=== PATIENT | male | born 1945 | race African-American/Black ===

== ENCOUNTER 2019-01-21 11:32 | Inpatient (IN) | payer OTHER ==
--- NOTE | 2019-01-21 13:45 | R.PREADM ---
SCREENING DATE AND TIME 01/21/2019 11:36 (CDT) ANTICIPATED REHAB ADMISSION DATE 01/23/2019 REFERRING FACILITY [facility] REFERRAL DATE AND TIME 01/21/2019 11:37 (CDT) ACUTE ADMIT DATE 01/17/2019 Previous Rehabilitation(s): No. 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 Maxwell Chisholm M.D. MR# [id number] [facility] [id number] NAME CARROLL ARDON [address]ESS [address] [place]IP [address] DATE OF 1945 AGE 73 SSN# [id number] GENDER male MARITAL STATUS RACE black ADMIT FROM 02 - [facility] PRE-HOSPITAL LIVING SETTING 01 - Home (private home/apt. board/care, assisted living, chcf, transitional living) HOME TYPE AND DETAILS Type of home: single family house # of levels in the residence: 1 # of steps within the residence: 0 # of steps to enter the residence: 0 PRE-HOSPITAL LIVING WITH Family/Relatives FAMILY SUPPORT Yes PRIMARY FAMILY CONTACT NAME SURESH HAMILTON PRIMARY FAMILY CONTACT PHONE PRIMARY FAMILY CONTACT RELATIONSHIP PHONE PRIMARY FAMILY CONTACT ON ADM.? no IS PRIMARY FAMILY CONTACT AUTH. REP.? no 1ST EMERGENCY CONTACT SURESH HAMILTON 1ST CONTACT PHONE 1ST CONTACT RELATIONSHIP PHONE 1ST CONTACT ON ADM. no IS 1ST CONTACT AUTH. REP.? no PHONE 2ND CONTACT ON ADM.? no PATIENT EMPLOYMENT STATUS Retired (for age) PATIENT EMPLOYER No Employer PAYOR INFORMATION: 1ST PAYOR NAME MEDICARE 1ST PAYOR PHONE [phone] 1ST PAYOR INJURY/ILLNESS DUE TO ACCIDENT? No ANOTHER CONSTITUTION PARTY RESPONSIBLE? No PRIMARY REHAB/ACUTE DIAGNOSIS: COPD Exacerbation ONSET DATE 01/17/2019 REHAB IMPAIRMENT CATEGORY (MAXINE): 15 Pulmonary does NOT meet 60% rule PRIMARY DIAGNOSIS-RELATED SURGERIES: No surgeries related to the primary diagnosis were performed. COMORBID REHAB/ACUTE DIAGNOSES: - Non-Tiered Mixed hyperlipidemia (E78.2) PVD - N/A CHF CAD Hypertension Seizure BPH Hypothyroid INTERVENTIONS: - CAD 02 sats Activity management Medications VS - Hypertension Fluid management Medications VS - Hypothyroid Medications - PVD Martinez exercises Medications RISK FOR COMPLICATIONS: - CAD CHF Cardiac Arrest TX Pain - Hypertension CVA Hypotension TX TIA - Hypothyroid Depression Weight gain - PVD Amputation Gangrene Infection Ischemic ulcers Sepsis Wounds SUMMARY OF ACUTE HOSPITALIZATION: Pt. is a 73 yo Right-handed black male. On 01/17/2019 he was admitted to [facility] with diagnosis COPD Exacerbation. His impairment category is Pulmonary Disorders 10 - Chronic Obstructive Pulmonary Disease (10.1). Pre-morbidly, Pt. was independent/mod-I in Self-Care, Sphincter Control, Transfers Control, Locomotio n, Communication, and Social Cognition; and he had good Sphincter Control. Currently, he has deficits of Self-Care, Transfers Control, Locomotion, Endurance, Balance, and Safet y Awareness. Pt. is now referred to [facility] for acute in-patient rehabilitation in order to maximize patient's functional independence in activities of daily living, strength, ROM, and mobi lity. Patient has realistic goal of being discharged at assistance level 6-Marybeth to reside at Home with Fam rashawn/Relatives. Carroll Ardon Jr is a 73 year old male that lives in a single emma house with his . Patient was independent with ADLs and self care. On 12/30/2018, patient was brought to emergency room due to shortness of breath and was admitted to [facility] and treated. He is now medically stable but in need of 24-hour nursing, doctor supervision and oversite while receiving The patient is reasonably expected to participate in 3hours of therapy a day/15 hours per week and receive care with an intensive interdisciplinary approach. PAST MEDICAL HISTORY BPH CAD CHF Hypertension Seizure Hypothyroid PVD Mixed hyperlipidemia (E78.2) PAST SURGICAL HISTORY: NECK SURGERY Hernia repair Permanent Pacemaker Implant MEDICATION ALLERGIES: No Known Drug Allergies (NKDA) ENVIRONMENTAL ALLERGIES: None Known - Substance Allergies None Known - Other Allergies None Known CODE STATUS: Full code WEIGHT/HEIGHT/BMI: WEIGHT 125 lbs HEIGHT 5' 9" BMI 18.5 DIET: - Diet Type Regular - Diet - Solid Texture Regular - Diet - Liquid Texture Regular - Tube Feed N/A REVIEW OF SYSTEMS: - Gen Alert and awake Lying in bed No apparent distress Oriented to: person, time, and place - Vital Signs Temperature: 98.2 F SBP/DBP: 167/94 Pulse: 56 Resp: 17 Vital signs stable, afebrile - CVS RRR VITAL SIGNS Temperature: 98.2 F SBP/DBP: 167/94 Pulse: 56 Resp: 17 Vital signs stable, afebrile MEDICATIONS/TREATMENT: Other- See attached MAR (Medication Administration Record) Carroll Ardon.pdf. CURRENT SPHINCTER CONTROL: Pre-hospital bladder status: continent # of bladder accidents in the last 7 days prior to screenin Pre-hospital bowel status: continent # of bowel accidents in the last 7 days prior to screenin Last Bowel Movement Date: DETAILED CURRENT FUNCTIONAL STATUS: - Bladder accident frequency: Ind - No accidents in the past 7 days - Bowel accident frequency: Ind - No accidents in the past 7 days - Walking score based on distance walked: 0(N/A) - Wheelchair score based on distance traveled: 0(N/A) FUNCTIONAL STATUS: - Self-Care A. Eating Ind sup B. Grooming Ind sup C. Bathing Ind modA D. Dressing - Upper Ind modA E. Dressing - Lower Ind modA F. Toileting Ind modA - Sphincter Control G: Bladder control Ind Ind H: Bowel control Ind Ind - Transfers Control I. Bed/Chair/Wheelchair Ind maxA J. Toilet Ind maxA K. Tub/Shower Ind ADNO - Locomotion L. Walk/Wheelchair (C) Ind Dep L. Walk/Wheelchair (W) Ind Dep M. Stairs Ind ADNO - Communication N. Comprehension (B) Ind Ind O. Expression (B) Ind Ind - Social Cognition P. Social Interaction Ind Ind Q. Problem Solving Ind Ind R. Memory Ind Ind - Endurance Poor - Balance Poor - Safety Awareness Fair CURRENT FUNC. DEFICITS: Self-Care, Transfers Control, Locomotion, Endurance, Balance, and Safety Awareness THERAPY NOTES FROM ACUTE CARE: Attached. SPECIAL NEEDS: - Safety Concerns Skin breakdown precautions needed due to skin breakdown risk PATIENT NEEDS ACTIVE AND ONGOING THERAPEUTIC INTERVENTION OF MULTIPLE THERAPY DISCIPLINES, INCLUDING: - Dietary and Nutrition Adequate Nutrition. Nutritional Education. Nutritional Supplements. PATIENT NEEDS CLOSE MEDICAL SUPERVISION BY A REHABILITATION PHYSICIAN FOR: Bowel and Bladder Management Coordination of Treatment Team Medical and Co-Morbidity Management PATIENT REQUIRES 24X7 REHAB NURSING FOR MEDICAL AND FUNCTIONAL MGT. OF THE FOLLOWING DEFICITS: ADL's Ambulation Bowel and Bladder Management Communication Disease Management Medication Management Patient/Family Education Providing Safe Environment Transfers Pain Management DVT Management PATIENT REQUIRES INTENSIVE, COORDINATED INTERDISCIPLINARY APPROACH TO REHAB: Arranging Home Equipment/Services Discharge Planning Family Intervention/Training Hand Fabric Cutter/Case Management PATIENT REHAB POTENTIAL: Siri ARDON is able and expected to receive 3 hours of individualized therapy daily on at least 5 of steve ry 7 days Siri MENJIVARs prognosis for significant practical improvement within a reasonable period of time appears Good Expected level of measurable improvement will be of a practical value to Siri MENJIVARs functional capaci ty or adaptations to impairments Has a viable Discharge Plan Medically appropriate; condition is sufficiently stable to participate in intensive rehab program DISCHARGE PLAN: - Estimated Length of Stay (days) 11. - Consensus on plan Discharge plan has been discussed with primary caregiver. Patient/Family is in agreement with the meme n. Primary caregiver is in agreement with the plan. - Patient/Family Goals Return home with assistance. - Planned Living Setting Upon Discharge Home, to live with Family/Relatives. Transitional Living. RECOMMENDED CARE LEVEL: IRF RECOMMENDATION DETAILS: Recommended Admission to Comprehensive Rehabilitation Program to Increase Functional [place] SCREENER'S COMPLETENESS CONFIRMATION: - Screening Confirmation The patient data collection on this preadmission screening form is finished PHYSICIANS REVIEW AND ADMISSION DETERMINATION Admit - Based on my review of the Pre-Admission Screening results, in my medical judgment and experie nce, I concur with the findings and recommend admission to [facility], as this patient requires an IRF level of care. SIGNATURE PANEL: Clinical Liaison - [electronically] signed by Julio Cesar Abdul on 01/21/2019 at 12:50 (CDT) Physician Reviewer - [electronically] signed by Dr. Maxwell Chisholm M.D. on 01/21/2019 at 13:44 (CDT )
[2019-01-21] MEDS ORDERED: DOCUSATE NA/SENNA CONC 1 TAB PO PRN (18:21)
[2019-01-21] MEDS: CEFDINIR 300 MG CAP PO SCH (20:00)
[2019-01-21] MEDS: APIXABAN 2.5 MG TABLET PO SCH (20:01)
[2019-01-21] MEDS: DULERA 100/5 (MOMETASONE/FORMOTEROL) INHALER IH SCH (20:02)
[2019-01-21] MEDS: ATORVASTATIN 40 MG TAB PO SCH (20:03)
[2019-01-21] MEDS: HYDROCODONE/APAP 10/325 TAB PO PRN (21:32)
[2019-01-22 06:35] LABS: Absolute Lymphocytes (CBC) 1.5 K/uL (0.7-4.9); Hematocrit 36.2 % (39.6-49.0); Lymphocytes % 22.9 % (15.3-44.8); MPV 8.7 fL (7.6-11.3); RBC Red Blood Cell Count 3.98 M/uL (4.33-5.43)
[2019-01-22 06:53] LABS: Albumin 2.7 g/dL (3.4-5.0); BUN Blood Urea Nitrogen 31 mg/dL (7-18); Bicarbonate 30 mmol/L (21-32); Glucose Level 74 mg/dL (74-106); Magnesium 2.2 mg/dL (1.8-2.4); Potassium 3.8 mmol/L (3.5-5.1); Prealbumin 19.4 mg/dL (20-40); Sodium Level 140 mmol/L (136-145)
[2019-01-22] MEDS: ASPIRIN 81 MG CHEWABLE TABLET PO SCH (08:20)
[2019-01-22] MEDS: predniSONE 20 MG TAB PO SCH (08:20)
[2019-01-22] MEDS: POTASSIUM CL SA 10 MEQ TAB PO SCH (08:20)
[2019-01-22] MEDS: CEFDINIR 300 MG CAP PO SCH ×2 (08:20→19:00)
[2019-01-22] MEDS: APIXABAN 2.5 MG TABLET PO SCH ×2 (08:20→18:59)
[2019-01-22] MEDS: DULERA 100/5 (MOMETASONE/FORMOTEROL) INHALER IH SCH ×2 (08:35→19:00)
--- NOTE | 2019-01-22 14:31 | FAST ---
SHIFT START DATE/TIME: 01/22/2019 07:00 (CDT) SHIFT END DATE/TIME: 01/22/2019 19:00 (CDT) NAME YSABEL ARDON DATE OF : 1945 DATE OF ADMISSION: 01/21/2019 17:23 (CDT) PHONE: AGE: 73 N# [id number] GENDER: Male ENCOUNTER PHYSICIAN: Dr. Maxwell Chisholm M.D. ADMISSION DIAGNOSIS: - Pulmonary Disorders 10 - Chronic Obstructive Pulmonary Disease (10.1) COPD Exacerbation. EATING: EATING - STEP 1: Does the patient require the assistance of a person or device, or need extra time when eating? Yes. EATING - STEP 2: Does the patient require the assistance of a helper? Yes. EATING - STEP 3: Does the patient perform half or more of the eating tasks? Yes. EATING - STEP 4: Does the patient need only supervision, cuing, coaxing OR help to apply an orthosis OR help to cut fo od, open containers, pour liquids, or butter bread? Yes. EATING - SCORE: 5-SUP GROOMING: Comb/brush hair Oral care GROOMING - STEP 1: Does the patient require the assistance of a person or device, or need extra time when grooming? No. GROOMING - SCORE: 7-IND BATHING: Activity did not occur on this shift BATHING - SCORE: 0-UNK DRESSING - UPPER BODY: Activity did not occur on this shift ARTICLES SCORE Total number of steps: 0 DRESSING - UPPER BODY - SCORE: 0-UNK DRESSING - LOWER BODY: Activity did not occur on this shift ARTICLES SCORE Total number of steps: 0 DRESSING - LOWER BODY - SCORE: 0-UNK TOILETING: TOILETING - STEP 1: Does the patient require the assistance of a person or device, or need extra time with toileting? Yes . TOILETING - STEP 2: Does the patient require the assistance of a helper? Yes. TOILETING - STEP 3: How much assistance does the patient require from the helper? Hands-on assistance from the helper TOILETING - STEP 4: Of the 3 tasks: 1) Adjusting clothing prior to use, 2) Cleansing of perineal area, 3) Adjusting clot wisam after use; How many tasks does the patient perform WITHOUT assistance of the helper? Two tasks TOILETING - SCORE: 3-MOD BLADDER MANAGEMENT: BLADDER MANAGEMENT - STEP 1: Does the patient control the bladder completely and intentionally without equipment or devices or med ications, and is always continent? No. BLADDER MANAGEMENT - STEP 2: Does the patient require the assistance of a helper? No, patient requires and independently uses an a ssistive device, such as a urinal, bedpan, bedside commode, catheter, absorbent pad, or collecting de vice BLADDER MANAGEMENT - SCORE: 6-TREVER BLADDER MANAGEMENT - FREQUENCY OF ACCIDENTS: BLADDER MANAGEMENT(FA) - STEP 1: How many accidents has the patient had during the current shift? 2 BOWEL MANAGEMENT: Activity did not occur on this shift BOWEL MANAGEMENT - SCORE: 7-IND TRANSFERS: BED, CHAIR, WHEELCHAIR: TRANSFERS: BED, CHAIR, WHEELCHAIR - STEP 1: Does the patient require assistance of a person or device, or need extra time with bed, chair, or whe elchair transfers? Yes. TRANSFERS: BED, CHAIR, WHEELCHAIR - STEP 2: Does the patient require the assistance of a helper? Yes. TRANSFERS: BED, CHAIR, WHEELCHAIR - STEP 3: How much assistance does the patient require from the helper? Lifting of the patient TRANSFERS: BED, CHAIR, WHEELCHAIR - STEP 4: Does the helper lift the patient ONLY up? ONLY down? Up AND Down? ONLY up. TRANSFERS: BED, CHAIR, WHEELCHAIR - SCORE: 3-MOD TRANSFERS: TOILET: TRANSFERS: TOILET - STEP 1: Does the patient require the assistance of a person or device, or need extra time with toilet transfe rs? Yes. TRANSFERS: TOILET - STEP 2: Does the patient require the assistance of a helper? Yes. TRANSFERS: TOILET - STEP 3: How much assistance does the patient require from the helper? Patient performs half or more of the tr ansferring tasks TRANSFERS: TOILET - STEP 4: Does the patient need only incidental help such as contact guard or steadying during toilet transfer? No. Patient needs more than incidental help TRANSFERS: TOILET - SCORE: 3-MOD TRANSFERS: SHOWER: Activity did not occur on this shift TRANSFERS: SHOWER - SCORE: 0-UNK TRANSFERS: TUB: Activity did not occur on this shift TRANSFERS: TUB - SCORE: 0-UNK LOCOMOTION: WALK: Activity did not occur on this shift LOCOMOTION: WALK - SCORE: 0-UNK LOCOMOTION: WHEELCHAIR: Activity did not occur on this shift LOCOMOTION: WHEELCHAIR - SCORE: 0-UNK COMPREHENSION: COMPREHENSION - SCORE: 0-UNK EXPRESSION EXPRESSION - SCORE: 0-UNK SOCIAL INTERACTION: SOCIAL INTERACTION - SCORE: 0-UNK PROBLEM SOLVING: PROBLEM SOLVING - SCORE: 0-UNK MEMORY: MEMORY - SCORE: 0-UNK SIGNATURE PANEL: The following modified sections: Eating - Score, Grooming - Score, Bathing - Score, Dressing - Upper Body - Score, Dressing - Lower Body - Score, Toileting - Score, Bladder Management - Score, Bowel Man agement - Score, Transfers: Bed, Chair, Wheelchair - Score, Transfers: Toilet - Score, Transfers: Bed , Chair, Wheelchair - Score, Transfers: Toilet - Score, Transfers: Shower - Score, Transfers: Tub - S core, Locomotion: Walk - Score, Locomotion: Wheelchair - Score, Comprehension - Score, Expression - S core, Social Interaction - Score, Problem Solving - Score, Memory - Score were [electronically] nicolette d by Westley Hubbard on SunJan 22 2019 14:30:40 GMT-0500 (Central Daylight Time)
--- NOTE | 2019-01-22 15:54 | FAST ---
ENCOUNTER DATE AND TIME: 01/22/2019 08:00 (CDT) NAME YSABEL ARDON DATE OF : 1945 DATE OF ADMISSION: 01/21/2019 17:23 (CDT) PHONE: AGE: 73 SSN# [id number] GENDER: Male ENCOUNTER PHYSICIAN: Dr. Maxwell Chisholm M.D. ADMISSION DIAGNOSIS: - Pulmonary Disorders 10 - Chronic Obstructive Pulmonary Disease (10.1) COPD Exacerbation. EATING: Activity did not occur on this shift EATING - SCORE: 0-UNK GROOMING: Activity did not occur on this shift GROOMING - SCORE: 0-UNK BATHING: Activity did not occur on this shift BATHING - SCORE: 0-UNK DRESSING - UPPER BODY: Activity did not occur on this shift Patient is not dressing in public clothing ARTICLES SCORE Total number of steps: 0 DRESSING - UPPER BODY - SCORE: 0-UNK DRESSING - LOWER BODY: Activity did not occur on this shift Patient is not dressing in public clothing ARTICLES SCORE Total number of steps: 0 DRESSING - LOWER BODY - SCORE: 0-UNK TOILETING: Activity did not occur on this shift TOILETING - SCORE: 0-UNK BLADDER MANAGEMENT: Activity did not occur on this shift BLADDER MANAGEMENT - SCORE: 7-IND BOWEL MANAGEMENT: Activity did not occur on this shift BOWEL MANAGEMENT - SCORE: 7-IND TRANSFERS: BED, CHAIR, WHEELCHAIR: TRANSFERS: BED, CHAIR, WHEELCHAIR - STEP 1: Does the patient require assistance of a person or device, or need extra time with bed, chair, or whe elchair transfers? Yes. TRANSFERS: BED, CHAIR, WHEELCHAIR - STEP 2: Does the patient require the assistance of a helper? Yes. TRANSFERS: BED, CHAIR, WHEELCHAIR - STEP 3: How much assistance does the patient require from the helper? Lifting of the patient TRANSFERS: BED, CHAIR, WHEELCHAIR - STEP 4: Does the helper lift the patient ONLY up? ONLY down? Up AND Down? ONLY up. TRANSFERS: BED, CHAIR, WHEELCHAIR - SCORE: 3-MOD TRANSFERS: TOILET: Activity did not occur on this shift TRANSFERS: TOILET - SCORE: 0-UNK TRANSFERS: SHOWER: Activity did not occur on this shift TRANSFERS: SHOWER - SCORE: 0-UNK TRANSFERS: TUB: Activity did not occur on this shift TRANSFERS: TUB - SCORE: 0-UNK LOCOMOTION: WALK: Patient walks less than 50 feet LOCOMOTION: WALK - SCORE: 1-DEP LOCOMOTION: WHEELCHAIR: LOCOMOTION: WHEELCHAIR - STEP 1: Does the patient need help to go 150 feet in a wheelchair? Yes. LOCOMOTION: WHEELCHAIR - STEP 2: How much assistance does the patient need from the helper? Only supervision, cuing, or coaxing LOCOMOTION: WHEELCHAIR - SCORE: 5-SUP LOCOMOTION: STAIRS: Activity did not occur on this shift LOCOMOTION: STAIRS - SCORE: 0-UNK COMPREHENSION: COMPREHENSION - SCORE: 0-UNK EXPRESSION EXPRESSION - SCORE: 0-UNK SOCIAL INTERACTION: SOCIAL INTERACTION - SCORE: 0-UNK PROBLEM SOLVING: PROBLEM SOLVING - SCORE: 0-UNK MEMORY: MEMORY - SCORE: 0-UNK SIGNATURE PANEL: The following modified sections: Transfers: Bed, Chair, Wheelchair - Score, Transfers: Bed, Chair, Wh eelchair - Score, Transfers: Toilet - Score, Locomotion: Walk - Score, Locomotion: Wheelchair - Score , Locomotion: Stairs - Score were [electronically] signed by Vince Armando PT on SunJan 22 2019 15:53:22 T-0500 (Central Daylight Time)
--- NOTE | 2019-01-22 18:33 | R.HP ---
FACILITY: [facility] ENCOUNTER DATE AND TIME: 01/22/2019 18:29 (CDT) MR#: [id number] NAME CARROLL CASTANEDA ADDRESS: [id number] [place] [address] [address] PHONE: DATE OF : 1945 AGE: 73 SSN# [id number] GENDER: Male DEXTERITY Right-handed MARITAL STATUS RACE Black PRE-HOSPITAL LIVING SETTING 01 - Home (private home/apt. board/care, assisted living, half-way, transitional living) PRE-HOSPITAL LIVING WITH Family/Relatives ENCOUNTER PHYSICIAN: Dr. Maxwell Chisholm M.D. REFERRING DOCTOR: barbra Toledo DATE OF ADMISSION: 01/21/2019 17:23 (CDT) REFERRING FACILITY [facility] HOME TYPE AND DETAILS: Type of home: single family house # of levels in the residence: 1 # of steps within the residence: 0 # of steps to enter the residence: 0 ADMISSION DIAGNOSIS: COPD Exacerbation ONSET DATE: 01/17/2019 PRIMARY DIAGNOSIS-RELATED SURGERIES: No surgeries related to the primary diagnosis were performed. SECONDARY/COMORBID DIAGNOSES (TIERED): - Non-Tiered Mixed hyperlipidemia (E78.2) PVD - N/A CHF CAD Hypertension Seizure BPH Hypothyroid HISTORY OF PRESENT ILLNESS (HPI): Pt. is a 73 yo Right-handed black male. On 01/17/2019 he was admitted to [facility] with diagnosis COPD Exacerbation. His impairment category is Pulmonary Disorders 10 - Chronic Obstructive Pulmonary Disease (10.1). Pre-morbidly, Pt. was independent/mod-I in Self-Care, Sphincter Control, Transfers Control, Locomotio n, Communication, and Social Cognition; and he had good Sphincter Control. Currently, he has deficits of Self-Care, Transfers Control, Locomotion, Endurance, Balance, and Safet y Awareness. Pt. is now referred to [facility] for acute in-patient rehabilitation in order to maximize patient's functional independence in activities of daily living, strength, ROM, and mobi lity. Patient has realistic goal of being discharged at assistance level 6-Marybeth to reside at Home with Fam rashawn/Relatives. Carroll Castaneda Jr is a 73 year old male that lives in a single emma house with his . Patient was independent with ADLs and self care. On 12/30/2018, patient was brought to emergency room due to shortness of breath and was admitted to [facility] and treated. He is now medically stable but in need of 24-hour nursing, doctor supervision and oversite while receiving The patient is reasonably expected to participate in 3hours of therapy a day/15 hours per week and receive care with an intensive interdisciplinary approach. MEDICATION ALLERGIES: No Known Drug Allergies (NKDA) ENVIRONMENTAL ALLERGIES: None Known - Substance Allergies None Known - Other Allergies None Known PAST MEDICAL HISTORY: BPH CAD CHF Hypertension Seizure Hypothyroid PVD Mixed hyperlipidemia (E78.2) PAST SURGICAL HISTORY: NECK SURGERY Hernia repair Permanent Pacemaker Implant FAMILY HISTORY: Family history is not contributory. SOCIAL HISTORY: - Home Living Family/Relatives REVIEW OF SYSTEMS: - Gen No Chills Fatigue No Fever - Eyes No Double Vision No itchiness - ENMT No Difficulty Swallowing - CVS No Chest Discomfort No Chest Pain Fatigue No Weight Gain - Resp No Cough No Shortness of Breath - GI Continent No Abdominal Pain No Constipation No Diarrhea - Continent No Kidney Pain No Painful Urination No Urinary Urgency - MSK Joint Pain Muscle Cramps No Stiffness - Skin No Itching No Rash No Suspicious Lesions - Neuro Coordination Difficulty Difficulty with Concentration Memory Loss No Seizures Weakness - Psych No Anxiety No Depression No HIV Exposure No Persistent Infections No Seasonal Allergies - Endo No Cold/Heat Intolerance No Excessive Hunger No Excessive Thirst No Excessive Urination PHYSICAL EXAM - Gen Alert and awake Lying in bed No apparent distress Oriented to: person, time, and place - Skin No skin breakdown. Normacephalic - Eyes No abnormalities - ENMT No abnormalities - Neck No abnormalities - CVS RRR - Chest No abnormalities - Abd Soft - GI Non distended Deferred - No abnormalities - Ext No significant edema - MSK 4+/5 weakness in both lower extremities. - Neuro No focal deficits - Psych No abnormalities VITAL SIGNS Temperature: 98.2 F SBP/DBP: 167/94 Pulse: 56 Resp: 17 NURSING: - Shower allowing shower ACTIVITIES OOB only with supervision FUNCTIONAL STATUS: - Self-Care A. Eating Ind sup B. Grooming Ind sup C. Bathing Ind modA D. Dressing - Upper Ind modA E. Dressing - Lower Ind modA F. Toileting Ind modA - Sphincter Control G: Bladder control Ind Ind H: Bowel control Ind Ind - Transfers Control I. Bed/Chair/Wheelchair Ind maxA J. Toilet Ind maxA K. Tub/Shower Ind ADNO - Locomotion L. Walk/Wheelchair (C) Ind Dep L. Walk/Wheelchair (W) Ind Dep M. Stairs Ind ADNO - Communication N. Comprehension (B) Ind Ind O. Expression (B) Ind Ind - Social Cognition P. Social Interaction Ind Ind Q. Problem Solving Ind Ind R. Memory Ind Ind - Endurance Poor - Balance Poor - Safety Awareness Fair CURRENT FUNC. DEFICITS: Self-Care, Transfers Control, Locomotion, Endurance, Balance, and Safety Awareness MEDICATIONS: - Other See attached MAR (Medication Administration Record) Carroll [email or web address].pdf ASSESSMENT: Pt. is a 73 yo Right-handed black male.On 01/17/2019 he was admitted to [facility] with diagnosis COPD Exacerbation.His impairment category is Pulmonary Disorders 10 - Chronic Ob structive Pulmonary Disease (10.1).Pre-morbidly, Pt. was independent/mod-I in Self-Care, Sphincter Co ntrol, Transfers Control, Locomotion, Communication, and Social Cognition; and he had good Sphincter Control.Currently, he has deficits of Self-Care, Transfers Control, Locomotion, Endurance, Balance, a nd Safety Awareness.Pt. is now referred to [facility] for acute in-patient marianne abilitation in order to maximize patient's functional independence in activities of daily living, str ength, ROM, and mobility.- Rehab Goal Patient has realistic goal of being discharged at assistance level 6-Marybeth to reside at Home with Fam rashawn/Relatives. Carroll Castaneda is a 73 year old male that lives in a single emma house with his . Patient was independent with ADLs and self care. On 12/30/2018, patient was brought to emergency room due to shortness of breath and was admitted to [facility] and treated. He is now medically stable but in need of 24-hour nursing, doctor supervision and oversite while receiving The patient is reasonably expected to participate in 3hours of therapy a day/15 hours per week and receive care with an intensive interdisciplinary approach.REHAB PLAN: - Physical Therapy Gait dysfunction - to improve, our physical therapists will perform initial evaluation of pt's status upon admission and devise an individualized program for Gait Training, and Wheel Chair mobility Inability to transfer - to improve, our physical therapists will perform initial evaluation of pt's s tatus upon admission and devise an individualized program for Bed mobility Need for home safety evaluation - to improve, our physical therapists will perform initial evaluation of pt's status upon admission and devise an individualized program for Home Evaluation Need in caregiver upon discharge - to improve, our physical therapists will perform initial evaluatio n of pt's status upon admission and devise an individualized program for Caregiver Training New precaution - to improve, our physical therapists will perform initial evaluation of pt's status u [place] admission and devise an individualized program for Patient precaution education Edema - to improve, our physical therapists will perform initial evaluation of pt's status upon admi ssion and devise an individualized program for Elevation Training, and Lymphedema Therapy Poor balance - to improve, our physical therapists will perform initial evaluation of pt's status upo n admission and devise an individualized program for Balance Training Poor endurance - to improve, our physical therapists will perform initial evaluation of pt's status u [place]rederick admission and devise an individualized program for Endurance Training Weakness - to improve, our physical therapists will perform initial evaluation of pt's status upon ad mission and devise an individualized program for Aquatic Therapy, Neuromuscular Reeducation, and Stre ngthening Achieving independence - to improve, our physical therapists will perform initial evaluation of pt's status upon admission and devise an individualized program for Community Reintegration Activities - Occupational Therapy ADL deficits - to improve, our occupation therapists will perform initial evaluation of pt's status u [place]rederick admission and devise an individualized program for Bathing, Bed mobility, Community Reintegration , Cooking, Dressing, Eating, Fine Motor Skills, Grooming, Homemaking, Kitchen Mobility, Laundry, Tresa ent Education, Safety Awareness, Splinting - Positioning, Transfers(Toilet, Tub, Shower), and Wheel C hair Management Need for point of care specialist - to improve, our occupation therapists will perform initial evaluation of pt's s tatus upon admission and devise an individualized program for Caregiver Training Weakness - to improve, our occupation therapists will perform initial evaluation of pt's status upon admission and devise an individualized program for Aquatic Therapy, Balance, Endurance, UE ROM, and U E strengthening MEDICAL PLAN: - Diet Type Start Regular - Diet - Liquid Texture Start Regular - Tube Feed Start N/A - Other See attached MAR (Medication Administration Record) See attached MAR (Medication Administration Record) Castaneda Carroll.pdf - Diet - Solid Texture Regular - Shower shower DISCHARGE PLAN: - Estimated Length of Stay (days) 11. - Consensus on plan Discharge plan has been discussed with primary caregiver. Patient/Family is in agreement with the meme n. Primary caregiver is in agreement with the plan. - Patient/Family Goals Return home with assistance. - Planned Living Setting Upon Discharge Home, to live with Family/Relatives. Transitional Living. SIGNATURE PANEL: (CDT)
--- NOTE | 2019-01-22 18:35 | PAPE ---
PATIENT: [facility] MR# [id number] REFERRING DOCTOR barbra Toledo EVALUATION DATE AND TIME 01/22/2019 18:34 (CDT) NAME YSABEL ARDON DATE OF 1945 AGE 73 PHONE N# [id number] GENDER male EVALUATING PHYSICIAN Dr. Maxwell Chisholm M.D. ADMISSION DIAGNOSIS: COPD Exacerbation ONSET DATE 01/17/2019 SECONDARY/COMORBID DIAGNOSES TIERED: - Non-Tiered Mixed hyperlipidemia (E78.2) PVD - N/A CHF CAD Hypertension Seizure BPH Hypothyroid POST-ADMISSION FUNCTIONAL/MEDICAL STATUS: - Bladder Same accident frequency: Ind - No accidents in the past 7 days - Bowel Same accident frequency: Ind - No accidents in the past 7 days - Walking Same score based on distance walked: 0(N/A) - Wheelchair Same score based on distance traveled: 0(N/A) STATUS CHANGE EVALUATION: No change in Functional or Medical Status is identified compared with Pre-Admission screening. PATIENT NEEDS CLOSE MEDICAL SUPERVISION BY A REHABILITATION PHYSICIAN FOR: Bowel and Bladder Management Coordination of Treatment Team Medical and Co-Morbidity Management PATIENT REQUIRES 24X7 REHAB NURSING FOR MEDICAL AND FUNCTIONAL MGT. OF THE FOLLOWING DEFICITS: ADL's Ambulation Bowel and Bladder Management Communication Disease Management Medication Management Patient/Family Education Providing Safe Environment Transfers Pain Management DVT Management PATIENT REQUIRES INTENSIVE, COORDINATED INTERDISCIPLINARY APPROACH TO REHAB: Arranging Home Equipment/Services Discharge Planning Family Intervention/Training Credit Collection Specialist/Case Management LIST OF IDENTIFIED AND POTENTIAL PROBLEMS: Alteration in leisure activities Bladder, Incontinence Blood Pressure, Hypertension/hypotension Issues Bowel, Incontinence Fluid volume overload related to Congestive Heart Failure (CHF) Infection, Actual or Potential Mobility Impaired Pain, Alteration in Comfort Self Care Deficit Skin Integrity, Actual or Potential Urinary Tract Infection (UTI), Actual or Potential RISK FOR COMPLICATIONS - CAD CHF. Cardiac Arrest. MS. Pain. - Hypertension CVA. Hypotension. MS. TIA. - Hypothyroid Depression. Weight gain. - PVD Amputation. Gangrene. Infection. Ischemic ulcers. Sepsis. Wounds. INTERVENTIONS - CAD 02 sats. Activity management. Medications. VS. - Hypertension - Hypothyroid Medications. - PVD Martinez exercises. Medications. PATIENT COULD BE AT RISK FOR COMPLICATIONS FROM ADVERSE MEDICAL CONDITIONS DUE TO HIS/HER COMORBIDITI ES AND THE RIGORS OF THE INTENSIVE REHABILLITATION PROGRAM. METHODS OR INTERVENTIONS TO AVOID COMPLIC ATIONS INCLUDE: - Infection Clinical staff to assess and manage the signs and symptoms of infection including fever, redness, war mth, etc. - Urinary Tract Infection - Falls Patient will be evaluated for Fall Precautions and will be placed on Fall Precautions as indicated pe r protocol. - Skin Breakdown Nursing will assess skin daily using assessment tool and will place on Skin Breakdown Precautions as indicated per protocol. - Pain Clinical staff may employ non-medication methods such as massage, distraction, decrease stimulus, etc . as needed. Clinical staff will assess patient's pain level every shift per protocol to assess and e nsure pain management effectiveness. Medications will be given and the pain level re-assessed. PRELIMINARY PLAN OF CARE: - Physical Therapy Patient needs Physical Therapy for a daily minimum of 1.5 hours at least 5 out of 7 days, to improve: Mobility, Strengthening, Transfers, Stretching, ROM, Endurance, Ability to manage stairs, Gait, and Balance. - Speech Therapy Patient needs Speech Therapy for a daily minimum of 0.5 hours at least 5 out of 7 days, to improve: S wallowing, Cognition, Language Skills, and Compensatory Strategies. - Rehabilitation Nursing Patient requires 24x7 Rehabilitation Nursing for: Pain Issues, Identifying and preventing risk factor s, Monitoring and reporting current medical conditions, Assisting with ambulation and transfer, Jodie ting with all ADL-s, Teaching patients about disease process and medications, Family teaching, Provid ing safe environment, Bowel and Bladder Issues, Skin Integrity, and Medication Management. Patient needs Credit Collection Specialist and/or Case Management for: Discharge Planning, Arranging Home Equipmen t or Services, and Family Interventions. - Dietary and Nutrition Services Patient needs Dietary and Nutrition Services for: Adequate Nutrition, Nutritional Supplements, and Nu tritional Education. - Occupational Therapy Patient needs Occupational Therapy for a daily minimum of 1.5 hours at least 5 out of 7 days, to impr ove Activities of Daily Living, including: Eating, Grooming, Bathing, Dressing, Toileting, Toilet Tra nsfers, Community Reintegration, Higher functional activities, Adaptive Equipment, Splinting, Househo ld Tasks, and Other activities as determined. POTENTIAL FUNCTIONAL GOALS FOR PATIENT TO ACHIEVE BY DISCHARGE: - Safety Precaution Patient will remain free from falls or injury at time of discharge. - Bed Mobility Patient will perform bed mobility at 4-Shital level of assistance. - Transfers Patient will complete transfers from bed to chair at 4-Shital level of assistance. - Mobility Patient will ambulate 150 ft with 4-Shital level of assistance with RW. PATIENT REHAB POTENTIAL Siri ARDON is able and expected to receive 3 hours of individualized therapy daily on at least 5 of steve ry 7 days Siri ARDON's prognosis for significant practical improvement within a reasonable period of time appears Good Expected level of measurable improvement will be of a practical value to Siri ARDON's functional capaci ty or adaptations to impairments Has a viable Discharge Plan Medically appropriate; condition is sufficiently stable to participate in intensive rehab program DISCHARGE PLAN: - Estimated Length of Stay (days) 11. - Consensus on plan Discharge plan has been discussed with primary caregiver. Patient/Family is in agreement with the meme n. Primary caregiver is in agreement with the plan. - Patient/Family Goals Return home with assistance. - Planned Living Setting Upon Discharge Home, to live with Family/Relatives. Transitional Living. CONCLUSION ON REHABILITATION NECESSITY: I have evaluated patient's pre-admission functional status and, comparing it to the patient's post-ad mission functional status now, I conclude that the pre-admission assessment was accurate. Patient's c ondition on admission supports the medical necessity of admission to [facility]. It is safe to proceed with patient's therapy program. SIGNATURE PANEL: (CDT)
[2019-01-22] MEDS: ATORVASTATIN 40 MG TAB PO SCH (18:59)
[2019-01-22] MEDS: HYDROCODONE/APAP 10/325 TAB PO PRN (19:01)
[2019-01-23 06:16] LABS: Absolute Lymphocytes (CBC) 1.6 K/uL (0.7-4.9); Basophils % 0.3 % (0-1.3); Hematocrit 37.9 % (39.6-49.0); Lymphocytes % 26.7 % (15.3-44.8); MPV 8.5 fL (7.6-11.3); RBC Red Blood Cell Count 4.13 M/uL (4.33-5.43)
[2019-01-23 06:35] LABS: Albumin 2.7 g/dL (3.4-5.0); BUN Blood Urea Nitrogen 28 mg/dL (7-18); Bicarbonate 29 mmol/L (21-32); Glucose Level 73 mg/dL (74-106); Magnesium 2.1 mg/dL (1.8-2.4); Potassium 4.1 mmol/L (3.5-5.1); Sodium Level 139 mmol/L (136-145)
[2019-01-23] MEDS: DULERA 100/5 (MOMETASONE/FORMOTEROL) INHALER IH SCH ×2 (08:00→20:17)
[2019-01-23] MEDS: HYDROCODONE/APAP 10/325 TAB PO PRN ×2 (08:20→20:18)
[2019-01-23] MEDS: POTASSIUM CL SA 10 MEQ TAB PO SCH (08:21)
[2019-01-23] MEDS: APIXABAN 2.5 MG TABLET PO SCH ×2 (08:21→20:18)
[2019-01-23] MEDS: predniSONE 20 MG TAB PO SCH (08:21)
[2019-01-23] MEDS: ASPIRIN 81 MG CHEWABLE TABLET PO SCH (08:21)
[2019-01-23] MEDS: CEFDINIR 300 MG CAP PO SCH ×2 (08:50→20:18)
[2019-01-23] MEDS: LIDOCAINE 5% PATCH TOP SCH (10:20)
--- NOTE | 2019-01-23 11:45 | FAST ---
SHIFT START DATE/TIME: 01/23/2019 07:00 (CDT) SHIFT END DATE/TIME: 01/23/2019 19:00 (CDT) NAME YSABEL ARDON DATE OF : 1945 DATE OF ADMISSION: 01/21/2019 17:23 (CDT) PHONE: AGE: 73 N# [id number] GENDER: Male ENCOUNTER PHYSICIAN: Dr. Maxwell Chisholm M.D. ADMISSION DIAGNOSIS: - Pulmonary Disorders 10 - Chronic Obstructive Pulmonary Disease (10.1) COPD Exacerbation. EATING: EATING - STEP 1: Does the patient require the assistance of a person or device, or need extra time when eating? Yes. EATING - STEP 2: Does the patient require the assistance of a helper? No, patient only requires an assistive device, O R s/he takes more than reasonable time to eat, OR there is a safety concern, OR s/he requires modifie d food consistency EATING - SCORE: 6-TREVER GROOMING: Activity did not occur on this shift GROOMING - SCORE: 0-UNK BATHING: Activity did not occur on this shift BATHING - SCORE: 0-UNK DRESSING - UPPER BODY: Activity did not occur on this shift ARTICLES SCORE Total number of steps: 0 DRESSING - UPPER BODY - SCORE: 0-UNK DRESSING - LOWER BODY: Activity did not occur on this shift ARTICLES SCORE Total number of steps: 0 DRESSING - LOWER BODY - SCORE: 0-UNK TOILETING: TOILETING - STEP 1: Does the patient require the assistance of a person or device, or need extra time with toileting? Yes . TOILETING - STEP 2: Does the patient require the assistance of a helper? Yes. TOILETING - STEP 3: How much assistance does the patient require from the helper? Hands-on assistance from the helper TOILETING - STEP 4: Of the 3 tasks: 1) Adjusting clothing prior to use, 2) Cleansing of perineal area, 3) Adjusting clot wisam after use; How many tasks does the patient perform WITHOUT assistance of the helper? Three tasks with steadying assistance from the helper TOILETING - SCORE: 4-MIN BLADDER MANAGEMENT: BLADDER MANAGEMENT - STEP 1: Does the patient control the bladder completely and intentionally without equipment or devices or med ications, and is always continent? No. BLADDER MANAGEMENT - STEP 2: Does the patient require the assistance of a helper? No, patient requires and independently uses an a ssistive device, such as a urinal, bedpan, bedside commode, catheter, absorbent pad, or collecting de vice BLADDER MANAGEMENT - SCORE: 6-TREVER BOWEL MANAGEMENT: Activity did not occur on this shift BOWEL MANAGEMENT - SCORE: 7-IND TRANSFERS: BED, CHAIR, WHEELCHAIR: TRANSFERS: BED, CHAIR, WHEELCHAIR - STEP 1: Does the patient require assistance of a person or device, or need extra time with bed, chair, or whe elchair transfers? Yes. TRANSFERS: BED, CHAIR, WHEELCHAIR - STEP 2: Does the patient require the assistance of a helper? Yes. TRANSFERS: BED, CHAIR, WHEELCHAIR - STEP 3: How much assistance does the patient require from the helper? Steadying/guiding assistance TRANSFERS: BED, CHAIR, WHEELCHAIR - SCORE: 4-MIN TRANSFERS: TOILET: TRANSFERS: TOILET - STEP 1: Does the patient require the assistance of a person or device, or need extra time with toilet transfe rs? Yes. TRANSFERS: TOILET - STEP 2: Does the patient require the assistance of a helper? Yes. TRANSFERS: TOILET - STEP 3: How much assistance does the patient require from the helper? Patient performs half or more of the tr ansferring tasks TRANSFERS: TOILET - STEP 4: Does the patient need only incidental help such as contact guard or steadying during toilet transfer? Yes. TRANSFERS: TOILET - SCORE: 4-MIN TRANSFERS: SHOWER: Activity did not occur on this shift TRANSFERS: SHOWER - SCORE: 0-UNK TRANSFERS: TUB: Activity did not occur on this shift TRANSFERS: TUB - SCORE: 0-UNK LOCOMOTION: WALK: Activity did not occur on this shift LOCOMOTION: WALK - SCORE: 0-UNK LOCOMOTION: WHEELCHAIR: Activity did not occur on this shift LOCOMOTION: WHEELCHAIR - SCORE: 0-UNK COMPREHENSION: COMPREHENSION - SCORE: 0-UNK EXPRESSION EXPRESSION - SCORE: 0-UNK SOCIAL INTERACTION: SOCIAL INTERACTION - SCORE: 0-UNK PROBLEM SOLVING: PROBLEM SOLVING - SCORE: 0-UNK MEMORY: MEMORY - SCORE: 0-UNK SIGNATURE PANEL: The following modified sections: Eating - Score, Grooming - Score, Bathing - Score, Dressing - Upper Body - Score, Dressing - Lower Body - Score, Toileting - Score, Bladder Management - Score, Bowel Man agement - Score, Transfers: Bed, Chair, Wheelchair - Score, Transfers: Toilet - Score, Transfers: Neli wer - Score, Transfers: Tub - Score, Locomotion: Walk - Score, Locomotion: Wheelchair - Score, Compre hension - Score, Expression - Score, Social Interaction - Score, Problem Solving - Score, Memory - Sc ore were [electronically] signed by Westley Hubbard on Rachel Jan 23 2019 11:44:45 GMT-0500 (Central Daylight Time)
--- NOTE | 2019-01-23 16:20 | FAST ---
ENCOUNTER DATE AND TIME: 01/23/2019 08:00 (CDT) NAME YSABEL ARDNO DATE OF : 1945 DATE OF ADMISSION: 01/21/2019 17:23 (CDT) PHONE: AGE: 73 SSN# [id number] GENDER: Male ENCOUNTER PHYSICIAN: Dr. Maxwell Chisholm M.D. ADMISSION DIAGNOSIS: - Pulmonary Disorders 10 - Chronic Obstructive Pulmonary Disease (10.1) COPD Exacerbation. EATING: Activity did not occur on this shift EATING - SCORE: 0-UNK GROOMING: Activity did not occur on this shift GROOMING - SCORE: 0-UNK BATHING: Activity did not occur on this shift BATHING - SCORE: 0-UNK DRESSING - UPPER BODY: Activity did not occur on this shift Patient is not dressing in public clothing ARTICLES SCORE Total number of steps: 0 DRESSING - UPPER BODY - SCORE: 0-UNK DRESSING - LOWER BODY: Activity did not occur on this shift Patient is not dressing in public clothing ARTICLES SCORE Total number of steps: 0 DRESSING - LOWER BODY - SCORE: 0-UNK TOILETING: Activity did not occur on this shift TOILETING - SCORE: 0-UNK BLADDER MANAGEMENT: Activity did not occur on this shift BLADDER MANAGEMENT - SCORE: 7-IND BOWEL MANAGEMENT: Activity did not occur on this shift BOWEL MANAGEMENT - SCORE: 7-IND TRANSFERS: BED, CHAIR, WHEELCHAIR: TRANSFERS: BED, CHAIR, WHEELCHAIR - STEP 1: Does the patient require assistance of a person or device, or need extra time with bed, chair, or whe elchair transfers? Yes. TRANSFERS: BED, CHAIR, WHEELCHAIR - STEP 2: Does the patient require the assistance of a helper? Yes. TRANSFERS: BED, CHAIR, WHEELCHAIR - STEP 3: How much assistance does the patient require from the helper? Lifting of the patient TRANSFERS: BED, CHAIR, WHEELCHAIR - STEP 4: Does the helper lift the patient ONLY up? ONLY down? Up AND Down? ONLY up. TRANSFERS: BED, CHAIR, WHEELCHAIR - SCORE: 3-MOD TRANSFERS: TOILET: Activity did not occur on this shift TRANSFERS: TOILET - SCORE: 0-UNK TRANSFERS: SHOWER: Activity did not occur on this shift TRANSFERS: SHOWER - SCORE: 0-UNK TRANSFERS: TUB: Activity did not occur on this shift TRANSFERS: TUB - SCORE: 0-UNK LOCOMOTION: WALK: LOCOMOTION: WALK - STEP 1: Does the patient need help from a person or device, or need extra time to walk 150 feet? Yes. LOCOMOTION: WALK - STEP 2: How much assistance does the patient require to walk a minimum of 150 feet? Patient walks less than 1 50 feet - but more than 50 feet - with the assistance of only one helper LOCOMOTION: WALK - SCORE: 2-MAX LOCOMOTION: WHEELCHAIR: LOCOMOTION: WHEELCHAIR - STEP 1: Does the patient need help to go 150 feet in a wheelchair? Yes. LOCOMOTION: WHEELCHAIR - STEP 2: How much assistance does the patient need from the helper? Only supervision, cuing, or coaxing LOCOMOTION: WHEELCHAIR - SCORE: 5-SUP LOCOMOTION: STAIRS: Activity did not occur on this shift LOCOMOTION: STAIRS - SCORE: 0-UNK COMPREHENSION: COMPREHENSION - SCORE: 0-UNK EXPRESSION EXPRESSION - SCORE: 0-UNK SOCIAL INTERACTION: SOCIAL INTERACTION - SCORE: 0-UNK PROBLEM SOLVING: PROBLEM SOLVING - SCORE: 0-UNK MEMORY: MEMORY - SCORE: 0-UNK SIGNATURE PANEL: The following modified sections: Transfers: Bed, Chair, Wheelchair - Score, Transfers: Bed, Chair, Wh eelchair - Score, Transfers: Toilet - Score, Locomotion: Walk - Score, Locomotion: Wheelchair - Score , Locomotion: Stairs - Score were [electronically] signed by Vince Armando PT on SunJan 23 2019 16:11:46 GMT-0500 (Central Daylight Time)
--- NOTE | 2019-01-23 18:30 | R.PN ---
ENCOUNTER DATE AND TIME: 01/23/2019 18:27 (CDT) NAME CARROLL CASTANEDA DATE OF : 1945 DATE OF ADMISSION: 01/21/2019 17:23 (CDT) COPD ExacerbationCHIEF COMPLAINT: Debility SUBJECTIVE: Pt denied any depression. Pt denied any Shortness of Breath. He is making good overal progress with physical and occupational therapy. VITAL SIGNS Temperature: 98.2 F SBP/DBP:169/87 Pulse: 64 Resp: 16 MEDICATION ALLERGIES: No Known Drug Allergies (NKDA) ENVIRONMENTAL ALLERGIES: None Known - Substance Allergies None Known - Other Allergies None Known NURSING: - Shower allowing shower ACTIVITIES OOB only with supervision THERAPIES: - Dietary and Nutrition Adequate Nutrition. Nutritional Education. Nutritional Supplements. PHYSICAL EXAM - Gen Alert and awake Lying in bed No apparent distress Oriented to: person, time, and place - Skin No skin breakdown. Normacephalic - Eyes No abnormalities - ENMT No abnormalities - Neck No abnormalities - CVS RRR - Chest No abnormalities - Abd Soft - GI Non distended Deferred - No abnormalities - Ext No significant edema - MSK 4+/5 weakness in both lower extremities. - Neuro No focal deficits - Psych No abnormalities ASSESSMENT: Pt. is a 73 yo Right-handed black male.On 01/17/2019 he was admitted to [facility] with diagnosis COPD Exacerbation.His impairment category is Pulmonary Disorders 10 - Chronic Ob structive Pulmonary Disease (10.1).Pre-morbidly, Pt. was independent/mod-I in Self-Care, Sphincter Co ntrol, Transfers Control, Locomotion, Communication, and Social Cognition; and he had good Sphincter Control.Currently, he has deficits of Self-Care, Transfers Control, Locomotion, Endurance, Balance, a nd Safety Awareness.Pt. is now referred to [facility] for acute in-patient marianne abilitation in order to maximize patient's functional independence in activities of daily living, str ength, ROM, and mobility.- Rehab Goal Patient has realistic goal of being discharged at assistance level 6-Marybeth to reside at Home with Fam rashawn/Relatives. MDM/PLAN: - Physical Therapy Gait dysfunction - to improve, our physical therapists will perform initial evaluation of pt's statu s upon admission and devise an individualized program for Gait Training, and Wheel Chair mobility Inability to transfer - to improve, our physical therapists will perform initial evaluation of pt's status upon admission and devise an individualized program for Bed mobility Need for home safety evaluation - to improve, our physical therapists will perform initial evaluatio n of pt's status upon admission and devise an individualized program for Home Evaluation Need in caregiver upon discharge - to improve, our physical therapists will perform initial evaluati on of pt's status upon admission and devise an individualized program for Caregiver Training Edema - to improve, our physical therapists will perform initial evaluation of pt's status upon admis yesi and devise an individualized program for Elevation Training, and Lymphedema Therapy New precaution - to improve, our physical therapists will perform initial evaluation of pt's status upon admission and devise an individualized program for Patient precaution education Poor balance - to improve, our physical therapists will perform initial evaluation of pt's status up on admission and devise an individualized program for Balance Training Poor endurance - to improve, our physical therapists will perform initial evaluation of pt's status upon admission and devise an individualized program for Endurance Training Weakness - to improve, our physical therapists will perform initial evaluation of pt's status upon a dmission and devise an individualized program for Aquatic Therapy, Neuromuscular Reeducation, and Str engthening Achieving independence - to improve, our physical therapists will perform initial evaluation of pt's status upon admission and devise an individualized program for Community Reintegration Activities - Occupational Therapy ADL deficits - to improve, our occupation therapists will perform initial evaluation of pt's status upon admission and devise an individualized program for Bathing, Bed mobility, Community Reintegratio n, Cooking, Dressing, Eating, Fine Motor Skills, Grooming, Homemaking, Kitchen Mobility, Laundry, Pat ient Education, Safety Awareness, Splinting - Positioning, Transfers(Toilet, Tub, Shower), and Wheel Chair Management Need for complex care nurse practitioner - to improve, our occupation therapists will perform initial evaluation of pt's status upon admission and devise an individualized program for Caregiver Training Weakness - to improve, our occupation therapists will perform initial evaluation of pt's status upon admission and devise an individualized program for Aquatic Therapy, Balance, Endurance, UE ROM, and UE strengthening - Other See attached MAR (Medication Administration Record) Carroll Castaneda.pdf See attached MAR (Medication Administration Record) Cosmo Castanedae.pdf See attached MAR (Medication Administration Record) - Diet Type Continue Regular - Diet - Liquid Texture Continue Regular - Tube Feed Continue N/A - Diet - Solid Texture Continue Regular - Shower allowing shower FUNCTIONAL STATUS: UPDATED AT WEEKLY TEAM CONFERENCE - Bladder Same accident frequency: 7-Ind - No accidents in the past 7 days - Bowel Same accident frequency: 7-Ind - No accidents in the past 7 days - Walking Same score based on distance walked: 0(N/A) - Wheelchair Same score based on distance traveled: 0(N/A) FUNCTIONAL STATUS: - Self-Care A. Eating sup B. Grooming sup C. Bathing modA D. Dressing - Upper modA E. Dressing - Lower modA F. Toileting modA - Sphincter Control G: Bladder control Ind H: Bowel control Ind - Transfers Control I. Bed/Chair/Wheelchair maxA J. Toilet maxA K. Tub/Shower ADNO - Locomotion L. Walk/Wheelchair (C) Dep L. Walk/Wheelchair (W) Dep M. Stairs ADNO - Communication N. Comprehension (B) Ind O. Expression (B) Ind - Social Cognition P. Social Interaction Ind Q. Problem Solving Ind R. Memory Ind - Endurance Poor - Balance Poor - Safety Awareness Fair CURRENT FUNC. DEFICITS: Self-Care, Transfers Control, Locomotion, Endurance, Balance, and Safety Awareness SIGNATURE PANEL: (CDT)
[2019-01-23] MEDS: MELATONIN 3 MG TABLET PO PRN (20:19)
[2019-01-23] MEDS: ATORVASTATIN 40 MG TAB PO SCH (20:19)
--- NOTE | 2019-01-24 08:13 | P.CNS ---
Date of Consult: 01/24/19 Reason for Consult: painful toenails Chief Complaint: Painful elongated toenails Allergies No Known Allergies Allergy (Verified 01/21/19 17:55) Home Medications: Aspirin Chewable [Aspirin Chewable*] 1 tab PO DAILY 01/21/19 Atorvastatin Calcium [Lipitor] 1 tab PO BEDTIME 01/21/19 Fluticasone/Salmeterol [Advair 250-50 Diskus] 1 puff IH BID 01/21/19 Hydrocodone 10/APAP 325 [[place] 10/325*] 1 tab PO Q6H PRN 01/21/19 Potassium Oral Tab [Klor-Con 10 mEq Tab*] 20 meq PO DAILY 01/21/19 predniSONE [Prednisone*] 1 tab PO DAILY 01/21/19 - Past Medical/Surgical History Diabetic: No -: BPH -: CAD -: CHF -: HTN -: SEIZURE- last episode in the 60s-dilantinx 20 y -: HYPOTHYROIDISM -: PVD -: HYPERLIPIDEMIA -: Emphysema -: COPD -: UTI -: neck surgery -: hernia repair -: permanent pacemaker placement - Family History Brother Medical History: Other (see notes) Notes: peripheral problems with legs - Social History Alcohol use: No CD- Drugs: No Caffeine use: Yes Place of Residence: Home Review of Systems 10-point ROS is otherwise unremarkable Physical Examination Temp Pulse Resp BP Pulse Ox 97.6 F 60 16 145/81 H 99 01/24/19 06:44 01/24/19 06:44 01/24/19 06:44 01/24/19 06:44 01/24/19 06:44 General: Alert, In no apparent distress, Oriented x3 Cardiovascular: No edema, Abnormal pulses Capillary refill: >2 Seconds Musculoskeletal: No clubbing, No swelling, No contractures, No erythema, No tenderness, No warmth Integumentary: Other (absent hair growth bilateral with thickened elongated toenials x 5 bilateral. No signs of infection) Neurological: Sensation intact - Problems (1) Generalized atherosclerosis Current Visit: Yes Status: Acute (2) Tinea unguium Current Visit: Yes Status: Acute Conclusions/Impression: debridment of nails at bedside mechanically. x 10
[2019-01-24] MEDS: DULERA 100/5 (MOMETASONE/FORMOTEROL) INHALER IH SCH ×2 (08:29→20:59)
[2019-01-24] MEDS: predniSONE 20 MG TAB PO SCH (08:30)
[2019-01-24] MEDS: POTASSIUM CL SA 10 MEQ TAB PO SCH (08:30)
[2019-01-24] MEDS: ASPIRIN 81 MG CHEWABLE TABLET PO SCH (08:30)
[2019-01-24] MEDS: CEFDINIR 300 MG CAP PO SCH ×2 (08:30→20:59)
[2019-01-24] MEDS: HYDROCODONE/APAP 10/325 TAB PO PRN (08:31)
[2019-01-24] MEDS: APIXABAN 2.5 MG TABLET PO SCH ×2 (08:31→20:58)
--- NOTE | 2019-01-24 09:44 | P.RH.PN ---
Estimated Length of Stay: 12 Expected Discharge Date: 02/01/19 Discharge Disposition Plan: Home Family Support: Yes [facility] Goal: Mobility, Transfers, Self Care Vital Signs: Last Vital Signs Temp 97.6 F 01/24/19 06:44 Pulse 60 01/24/19 06:44 Resp 14 01/24/19 09:31 BP 145/81 H 01/24/19 06:44 Pulse Ox 97 01/24/19 09:31 Laboratory: Laboratory Last Values WBC 5.9 K/uL (4.3-10.9) 01/23/19 05:50 RBC 4.13 M/uL (4.33-5.43) L 01/23/19 05:50 Hgb 12.8 g/dL (13.6-17.9) L 01/23/19 05:50 Hct 37.9 % (39.6-49.0) L 01/23/19 05:50 MCV 91.6 fL (80-100) 01/23/19 05:50 MCH 31.1 pg (27.0-35.0) 01/23/19 05:50 MCHC 33.9 g/dL (32.0-36.0) 01/23/19 05:50 RDW 14.9 % (12.1-15.2) 01/23/19 05:50 Plt Count 226 K/uL (152-406) 01/23/19 05:50 MPV 8.5 fL (7.6-11.3) 01/23/19 05:50 Neutrophils % 62.8 % (41.7-73.7) 01/23/19 05:50 Lymphocytes % 26.7 % (15.3-44.8) 01/23/19 05:50 Monocytes % 8.8 % (3.3-12.3) 01/23/19 05:50 Eosinophils % 1.4 % (0-4.4) 01/23/19 05:50 Basophils % 0.3 % (0-1.3) 01/23/19 05:50 Absolute Neutrophils 3.7 K/uL (1.8-8.0) 01/23/19 05:50 Absolute Lymphocytes 1.6 K/uL (0.7-4.9) 01/23/19 05:50 Absolute Monocytes 0.5 K/uL (0.1-1.3) 01/23/19 05:50 Absolute Eosinophils 0.1 K/uL (0-0.5) 01/23/19 05:50 Absolute Basophils 0.0 K/uL (0-0.5) 01/23/19 05:50 Sodium 139 mmol/L (136-145) 01/23/19 05:50 Potassium 4.1 mmol/L (3.5-5.1) 01/23/19 05:50 Chloride 104 mmol/L (98-107) 01/23/19 05:50 Carbon Dioxide 29 mmol/L (21-32) 01/23/19 05:50 BUN 28 mg/dL (7-18) H 01/23/19 05:50 Creatinine 0.74 mg/dL (0.55-1.3) 01/23/19 05:50 Estimated GFR > 90 mL/min (=/>90) 01/23/19 05:50 Glucose 73 mg/dL (74-106) L 01/23/19 05:50 Calcium 7.9 mg/dL (8.5-10.1) L 01/23/19 05:50 Magnesium 2.1 mg/dL (1.8-2.4) 01/23/19 05:50 Albumin 2.7 g/dL (3.4-5.0) L 01/23/19 05:50 Prealbumin 19.0 mg/dL (20-40) L 01/23/19 05:50 Weight: 123 lb Wound Present: No Closed Surgical Incision Present: No Negative Pressure Wound Therapy Present: No Physician Update: Labs reviewed and are stable. Mildly low Hgb and Hct. He is making poor overall progress with physical and occupational therapy. His posture is unsteady. He admits to using a wheelchair mostly for the last 12 years. He is moderate to maximum assistance with transfers. He walks about 50' at a time. Medical Issues: UTI - Cefdinir 300mg BID PO X 5 days. DVT Prophylaxis - Eliquis 2.5mg BID PO Pain Issues: [place] 10/325mg Q6H PO PRN. Lidoderm patch 5% Daily Functional Improvement: pt has demonstrated a willingness to participate in therapy. He is improving his distance with ambulation. Continued work required for balance, stability, and posturing during ambulation. Functional Improvement Occupational Therapy: Patient participatory with therapy , however, very apprehensive with doing standing activities due to knee pain, and great fear of falling. Benefit from further OT in order to address these issues before a safe d/c home with spouse, who is not able to assist him with any ADL, as she has her own medical issues that she is currently overcoming as well. Speech Therapy Update: Patient presents with mild (min/trace) cognitive impairments characterized by decreased auditory comprehension (2' hearing impairments) and short-term memory deficits. 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 Patient is at MIN A to SUPV for Auditory Comprehension, MIN A for Verbal Expression, MOD I for Social Interaction, SUPV to MOD I for Problem Solving, and MIN A for Memory. 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 Please see the Rehabilitation Signature page for all necessary signatures.
[2019-01-24] MEDS: LIDOCAINE 5% PATCH TOP SCH (10:05)
--- NOTE | 2019-01-24 14:19 | FAST ---
ENCOUNTER DATE AND TIME: 01/24/2019 08:00 (CDT) NAME YSABEL ARDON DATE OF : 1945 DATE OF ADMISSION: 01/21/2019 17:23 (CDT) PHONE: AGE: 73 N# [id number] GENDER: Male ENCOUNTER PHYSICIAN: Dr. Maxwell Chisholm M.D. ADMISSION DIAGNOSIS: - Pulmonary Disorders 10 - Chronic Obstructive Pulmonary Disease (10.1) COPD Exacerbation. EATING: Activity did not occur on this shift EATING - SCORE: 0-UNK GROOMING: Wash, rinse, and dry face Wash, rinse, and dry hands GROOMING - STEP 1: Does the patient require the assistance of a person or device, or need extra time when grooming? Yes. GROOMING - STEP 2: Does the patient require the assistance of a helper? No. The patient only requires an assistive devic e, OR takes more than reasonable time to groom, OR there is a concern for safety as the patient groom s GROOMING - SCORE: 6-TREVER BATHING: Abdomen Buttocks Chest Left arm Left lower leg and foot Left upper leg Perineal area Right arm Right lower leg and foot Right upper leg BATHING - STEP 1: Does the patient require the assistance of a person or device, or need extra time when bathing? Yes. BATHING - STEP 2: Does the patient require the assistance of a helper? Yes. BATHING - STEP 3: How much assistance does the patient require from the helper? Only incidental help such as placement of a wash cloth in his/her hand a few times as s/he bathes OR help to bathe just one or two areas of the body BATHING - SCORE: 4-MIN DRESSING - UPPER BODY: Activity did not occur on this shift Patient is not dressing in public clothing ARTICLES SCORE Total number of steps: 0 DRESSING - UPPER BODY - SCORE: 0-UNK DRESSING - LOWER BODY: Sock - Left foot (one step) Sock - Right foot (one step) Underwear (three steps) ARTICLES SCORE Total number of steps: 5 DRESSING - LOWER BODY - STEP 1: Does the patient require help from a person or device, or need extra time when dressing below the ana st? Yes. DRESSING - LOWER BODY - STEP 2: Does the patient require the assistance of a helper? Yes. DRESSING - LOWER BODY - STEP 3: Does the helper touch the patient while dressing? Yes. DRESSING - LOWER BODY - STEP 4: How many of the total steps does the patient complete on his/her own? 5 DRESSING - LOWER BODY - SCORE: 4-MIN TOILETING: TOILETING - STEP 1: Does the patient require the assistance of a person or device, or need extra time with toileting? Yes . TOILETING - STEP 2: Does the patient require the assistance of a helper? Yes. TOILETING - STEP 3: How much assistance does the patient require from the helper? Hands-on assistance from the helper TOILETING - STEP 4: Of the 3 tasks: 1) Adjusting clothing prior to use, 2) Cleansing of perineal area, 3) Adjusting clot wisam after use; How many tasks does the patient perform WITHOUT assistance of the helper? Three tasks with steadying assistance from the helper TOILETING - SCORE: 4-MIN BLADDER MANAGEMENT: Activity did not occur on this shift BLADDER MANAGEMENT - SCORE: 7-IND BOWEL MANAGEMENT: Activity did not occur on this shift BOWEL MANAGEMENT - SCORE: 7-IND TRANSFERS: BED, CHAIR, WHEELCHAIR: Activity did not occur on this shift TRANSFERS: BED, CHAIR, WHEELCHAIR - SCORE: 0-UNK TRANSFERS: TOILET: TRANSFERS: TOILET - STEP 1: Does the patient require the assistance of a person or device, or need extra time with toilet transfe rs? Yes. TRANSFERS: TOILET - STEP 2: Does the patient require the assistance of a helper? Yes. TRANSFERS: TOILET - STEP 3: How much assistance does the patient require from the helper? Patient performs half or more of the tr ansferring tasks TRANSFERS: TOILET - STEP 4: Does the patient need only incidental help such as contact guard or steadying during toilet transfer? Yes. TRANSFERS: TOILET - SCORE: 4-MIN TRANSFERS: SHOWER: Activity did not occur on this shift TRANSFERS: SHOWER - SCORE: 0-UNK TRANSFERS: TUB: TRANSFERS: TUB - STEP 1: Does the patient require the assistance of a person or device, or need extra time with tub transfers? Yes. TRANSFERS: TUB - STEP 2: Does the patient require the assistance of a helper? Yes. TRANSFERS: TUB - STEP 3: How much assistance does the patient require from the helper? Incidental help such as contact guardin g or steadying, OR help to lift one leg into the tub TRANSFERS: TUB - SCORE: 4-MIN LOCOMOTION: WALK: Activity did not occur on this shift LOCOMOTION: WALK - SCORE: 0-UNK LOCOMOTION: WHEELCHAIR: Activity did not occur on this shift LOCOMOTION: WHEELCHAIR - SCORE: 0-UNK LOCOMOTION: STAIRS: Activity did not occur on this shift LOCOMOTION: STAIRS - SCORE: 0-UNK COMPREHENSION: COMPREHENSION - SCORE: 0-UNK EXPRESSION EXPRESSION - SCORE: 0-UNK SOCIAL INTERACTION: SOCIAL INTERACTION - SCORE: 0-UNK PROBLEM SOLVING: PROBLEM SOLVING - SCORE: 0-UNK MEMORY: MEMORY - SCORE: 0-UNK SIGNATURE PANEL: The following modified sections: Eating - Score, Grooming - Score, Grooming - Score, Bathing - Score, Dressing - Upper Body - Score, Dressing - Lower Body - Score, Toileting - Score, Transfers: Bed, Rosana ir, Wheelchair - Score, Transfers: Toilet - Score, Transfers: Toilet - Score, Transfers: Shower - Sco re, Transfers: Tub - Score, Comprehension - Score, Expression - Score, Social Interaction - Score, Pr oblem Solving - Score, Memory - Score were [electronically] signed by AILYN Haider on SunJan 24 2019 14:18:04 GMT-0500 (Central Daylight Time)
--- NOTE | 2019-01-24 15:00 | FAST ---
ENCOUNTER DATE AND TIME: 01/24/2019 08:00 (CDT) NAME YSABEL ARDON DATE OF : 1945 DATE OF ADMISSION: 01/21/2019 17:23 (CDT) PHONE: AGE: 73 SSN# [id number] GENDER: Male ENCOUNTER PHYSICIAN: Dr. Maxwell Chisholm M.D. ADMISSION DIAGNOSIS: - Pulmonary Disorders 10 - Chronic Obstructive Pulmonary Disease (10.1) COPD Exacerbation. EATING: Activity did not occur on this shift EATING - SCORE: 0-UNK GROOMING: Activity did not occur on this shift GROOMING - SCORE: 0-UNK BATHING: Activity did not occur on this shift BATHING - SCORE: 0-UNK DRESSING - UPPER BODY: Activity did not occur on this shift Patient is not dressing in public clothing ARTICLES SCORE Total number of steps: 0 DRESSING - UPPER BODY - SCORE: 0-UNK DRESSING - LOWER BODY: Activity did not occur on this shift Patient is not dressing in public clothing ARTICLES SCORE Total number of steps: 0 DRESSING - LOWER BODY - SCORE: 0-UNK TOILETING: Activity did not occur on this shift TOILETING - SCORE: 0-UNK BLADDER MANAGEMENT: Activity did not occur on this shift BLADDER MANAGEMENT - SCORE: 7-IND BOWEL MANAGEMENT: Activity did not occur on this shift BOWEL MANAGEMENT - SCORE: 7-IND TRANSFERS: BED, CHAIR, WHEELCHAIR: TRANSFERS: BED, CHAIR, WHEELCHAIR - STEP 1: Does the patient require assistance of a person or device, or need extra time with bed, chair, or whe elchair transfers? Yes. TRANSFERS: BED, CHAIR, WHEELCHAIR - STEP 2: Does the patient require the assistance of a helper? Yes. TRANSFERS: BED, CHAIR, WHEELCHAIR - STEP 3: How much assistance does the patient require from the helper? Steadying/guiding assistance TRANSFERS: BED, CHAIR, WHEELCHAIR - SCORE: 4-MIN TRANSFERS: TOILET: Activity did not occur on this shift TRANSFERS: TOILET - SCORE: 0-UNK TRANSFERS: SHOWER: Activity did not occur on this shift TRANSFERS: SHOWER - SCORE: 0-UNK TRANSFERS: TUB: Activity did not occur on this shift TRANSFERS: TUB - SCORE: 0-UNK LOCOMOTION: WALK: LOCOMOTION: WALK - STEP 1: Does the patient need help from a person or device, or need extra time to walk 150 feet? Yes. LOCOMOTION: WALK - STEP 2: How much assistance does the patient require to walk a minimum of 150 feet? Patient walks less than 1 50 feet - but more than 50 feet - with the assistance of only one helper LOCOMOTION: WALK - SCORE: 2-MAX LOCOMOTION: WHEELCHAIR: LOCOMOTION: WHEELCHAIR - STEP 1: Does the patient need help to go 150 feet in a wheelchair? Yes. LOCOMOTION: WHEELCHAIR - STEP 2: How much assistance does the patient need from the helper? Only supervision, cuing, or coaxing LOCOMOTION: WHEELCHAIR - SCORE: 5-SUP LOCOMOTION: STAIRS: Activity did not occur on this shift LOCOMOTION: STAIRS - SCORE: 0-UNK COMPREHENSION: COMPREHENSION - SCORE: 0-UNK EXPRESSION EXPRESSION - SCORE: 0-UNK SOCIAL INTERACTION: SOCIAL INTERACTION - SCORE: 0-UNK PROBLEM SOLVING: PROBLEM SOLVING - SCORE: 0-UNK MEMORY: MEMORY - SCORE: 0-UNK SIGNATURE PANEL: The following modified sections: Transfers: Bed, Chair, Wheelchair - Score, Transfers: Toilet - Score , Locomotion: Walk - Score, Locomotion: Wheelchair - Score, Locomotion: Stairs - Score were [electron snehal] signed by Sandeep Pringle PTA on SunJan 24 2019 14:58:52 GMT-0500 (Central Daylight Time)
[2019-01-24] MEDS: ATORVASTATIN 40 MG TAB PO SCH (20:58)
--- NOTE | 2019-01-25 02:20 | FAST ---
SHIFT START DATE/TIME: 01/24/2019 19:00 (CDT) SHIFT END DATE/TIME: 01/25/2019 07:00 (CDT) NAME YSABEL ARDON DATE OF : 1945 DATE OF ADMISSION: 01/21/2019 17:23 (CDT) PHONE: AGE: 73 SSN# [id number] GENDER: Male ENCOUNTER PHYSICIAN: Dr. Maxwell Chisholm M.D. ADMISSION DIAGNOSIS: - Pulmonary Disorders 10 - Chronic Obstructive Pulmonary Disease (10.1) COPD Exacerbation. EATING: Activity did not occur on this shift EATING - SCORE: 0-UNK GROOMING: Activity did not occur on this shift GROOMING - SCORE: 0-UNK BATHING: Activity did not occur on this shift BATHING - SCORE: 0-UNK DRESSING - UPPER BODY: Patient is not dressing in public clothing ARTICLES SCORE Total number of steps: 0 DRESSING - UPPER BODY - SCORE: 0-UNK DRESSING - LOWER BODY: Patient is not dressing in public clothing ARTICLES SCORE Total number of steps: 0 DRESSING - LOWER BODY - SCORE: 0-UNK TOILETING: Activity did not occur on this shift TOILETING - SCORE: 0-UNK BLADDER MANAGEMENT: [place] removes incontinent device (Depends, pull ups, etc.); cleans the patient after accident / inco ntinent episode; and, applies new incontinent device. BLADDER MANAGEMENT - SCORE: 1-DEP BLADDER MANAGEMENT - FREQUENCY OF ACCIDENTS: BLADDER MANAGEMENT(FA) - STEP 1: How many accidents has the patient had during the current shift? 1 BOWEL MANAGEMENT: Activity did not occur on this shift BOWEL MANAGEMENT - SCORE: 7-IND TRANSFERS: BED, CHAIR, WHEELCHAIR: Activity did not occur on this shift TRANSFERS: BED, CHAIR, WHEELCHAIR - SCORE: 0-UNK TRANSFERS: TOILET: Activity did not occur on this shift TRANSFERS: TOILET - SCORE: 0-UNK TRANSFERS: SHOWER: Activity did not occur on this shift TRANSFERS: SHOWER - SCORE: 0-UNK TRANSFERS: TUB: Activity did not occur on this shift TRANSFERS: TUB - SCORE: 0-UNK LOCOMOTION: WALK: Activity did not occur on this shift LOCOMOTION: WALK - SCORE: 0-UNK LOCOMOTION: WHEELCHAIR: Activity did not occur on this shift LOCOMOTION: WHEELCHAIR - SCORE: 0-UNK COMPREHENSION: COMPREHENSION: TYPE: Both COMPREHENSION - STEP 1: Does the patient require help from a person or device, or need extra time to understand complex and a bstract ideas (such as current events, finances, discharge planning, medical issues, relationships, e tc)? Yes. COMPREHENSION - STEP 2: Does the patient require help to understand questions or statements about basic needs or ideas (such as hunger, thirst, sleep, safety, daily schedule, room location, or discomfort) half or more of the t talya? No. COMPREHENSION - STEP 3: How often does the patient need help to understand directions and conversation about basic needs? Les s than 10% of the time COMPREHENSION - SCORE: 5-SUP EXPRESSION EXPRESSION: TYPE: Both EXPRESSION - STEP 1: Does the patient require help from a person or device, or need extra time expressing complex and abst ract ideas (such as current events, finances, discharge planning, medical issues, relationships, etc) ? No. EXPRESSION - STEP 2: Does the patient need extra time, require an assistive device (such as augmentive communication syste m or a communication board), OR does s/he have mild difficulty expressing complex and abstract ideas (including mild dysarthria or mild word-find problems)? Yes. EXPRESSION - SCORE: 6-TREVER SOCIAL INTERACTION: SOCIAL INTERACTION - STEP 1: Does the patient require a helper to interact with others in social and therapeutic situations? No. SOCIAL INTERACTION - STEP 2: Does the patient need extra time in social situations, OR does s/he interact with staff, other patien ts, and family members ONLY in structured environments, OR does s/he require medication for social in teraction? Yes, patient needs extra time SOCIAL INTERACTION - SCORE: 6-TREVER PROBLEM SOLVING: PROBLEM SOLVING - STEP 1: Does the patient need help from a person or device, or need extra time to solve complex problems such as managing a checking account or confronting interpersonal problems? Yes. PROBLEM SOLVING - STEP 2: Does the patient solve basic routine problems half or more of the time? Yes. PROBLEM SOLVING - STEP 3: How often does the patient need help to solve basic routine problems? 10%-24% of the time PROBLEM SOLVING - SCORE: 4-MIN MEMORY: MEMORY - STEP 1: Does the patient need help from a person or device, or need extra time to remember frequently encount ered people, daily routines, and executing requests? Yes. MEMORY - STEP 2: How often does the patient need help to remember frequently encountered people, daily routines, and e xecuting requests? 10% - 24% of the time MEMORY - SCORE: 4-MIN
[2019-01-25] MEDS: LIDOCAINE 5% PATCH TOP SCH (06:31)
[2019-01-25] MEDS: HYDROCODONE/APAP 10/325 TAB PO PRN (06:31)
[2019-01-25] MEDS: DULERA 100/5 (MOMETASONE/FORMOTEROL) INHALER IH SCH ×2 (07:29→19:53)
[2019-01-25] MEDS: APIXABAN 2.5 MG TABLET PO SCH ×2 (07:30→19:53)
[2019-01-25] MEDS: POTASSIUM CL SA 10 MEQ TAB PO SCH (07:30)
[2019-01-25] MEDS: predniSONE 20 MG TAB PO SCH (07:30)
[2019-01-25] MEDS: CEFDINIR 300 MG CAP PO SCH ×2 (07:30→19:53)
[2019-01-25] MEDS: ASPIRIN 81 MG CHEWABLE TABLET PO SCH (07:30)
[2019-01-25] MEDS: ATORVASTATIN 40 MG TAB PO SCH (19:53)
--- NOTE | 2019-01-26 00:40 | FAST ---
SHIFT START DATE/TIME: 01/25/2019 19:00 (CDT) SHIFT END DATE/TIME: 01/26/2019 07:00 (CDT) NAME YSABEL ARDON DATE OF : 1945 DATE OF ADMISSION: 01/21/2019 17:23 (CDT) PHONE: AGE: 73 SSN# [id number] GENDER: Male ENCOUNTER PHYSICIAN: Dr. Maxwell Chisholm M.D. ADMISSION DIAGNOSIS: - Pulmonary Disorders 10 - Chronic Obstructive Pulmonary Disease (10.1) COPD Exacerbation. EATING: Activity did not occur on this shift EATING - SCORE: 0-UNK GROOMING: Activity did not occur on this shift GROOMING - SCORE: 0-UNK BATHING: Activity did not occur on this shift BATHING - SCORE: 0-UNK DRESSING - UPPER BODY: Patient is not dressing in public clothing ARTICLES SCORE Total number of steps: 0 DRESSING - UPPER BODY - SCORE: 0-UNK DRESSING - LOWER BODY: Patient is not dressing in public clothing ARTICLES SCORE Total number of steps: 0 DRESSING - LOWER BODY - SCORE: 0-UNK TOILETING: TOILETING - STEP 1: Does the patient require the assistance of a person or device, or need extra time with toileting? Yes . TOILETING - STEP 2: Does the patient require the assistance of a helper? Yes. TOILETING - STEP 3: How much assistance does the patient require from the helper? Hands-on assistance from the helper TOILETING - STEP 4: Of the 3 tasks: 1) Adjusting clothing prior to use, 2) Cleansing of perineal area, 3) Adjusting clot wisam after use; How many tasks does the patient perform WITHOUT assistance of the helper? No tasks; h elper performs all three tasks TOILETING - SCORE: 1-DEP BLADDER MANAGEMENT: [place] removes incontinent device (Depends, pull ups, etc.); cleans the patient after accident / inco ntinent episode; and, applies new incontinent device. BLADDER MANAGEMENT - SCORE: 1-DEP BOWEL MANAGEMENT: BOWEL MANAGEMENT - STEP 1: Does the patient control bowels completely and intentionally without equipment devices or medications AND is always continent? No. BOWEL MANAGEMENT - STEP 2: Does the patient require the assistance of a helper? No, patient requires medication for control such as stool softeners, suppositories, laxatives, enemas, or OTC medications BOWEL MANAGEMENT - SCORE: 6-TREVER TRANSFERS: BED, CHAIR, WHEELCHAIR: Activity did not occur on this shift TRANSFERS: BED, CHAIR, WHEELCHAIR - SCORE: 0-UNK TRANSFERS: TOILET: Activity did not occur on this shift TRANSFERS: TOILET - SCORE: 0-UNK TRANSFERS: SHOWER: Activity did not occur on this shift TRANSFERS: SHOWER - SCORE: 0-UNK TRANSFERS: TUB: Activity did not occur on this shift TRANSFERS: TUB - SCORE: 0-UNK LOCOMOTION: WALK: Activity did not occur on this shift LOCOMOTION: WALK - SCORE: 0-UNK LOCOMOTION: WHEELCHAIR: Activity did not occur on this shift LOCOMOTION: WHEELCHAIR - SCORE: 0-UNK COMPREHENSION: COMPREHENSION: TYPE: Both COMPREHENSION - STEP 1: Does the patient require help from a person or device, or need extra time to understand complex and a bstract ideas (such as current events, finances, discharge planning, medical issues, relationships, e tc)? No. COMPREHENSION - STEP 2: Does the patient need extra time, require an assistive device (such as glasses for visual comprehensi on or a hearing aid for auditory comprehension) or does s/he have mild difficulty understanding compl ex and abstract information? Yes. COMPREHENSION - SCORE: 6-TREVER EXPRESSION EXPRESSION: TYPE: Both EXPRESSION - STEP 1: Does the patient require help from a person or device, or need extra time expressing complex and abst ract ideas (such as current events, finances, discharge planning, medical issues, relationships, etc) ? No. EXPRESSION - STEP 2: Does the patient need extra time, require an assistive device (such as augmentive communication syste m or a communication board), OR does s/he have mild difficulty expressing complex and abstract ideas (including mild dysarthria or mild word-find problems)? No. EXPRESSION - SCORE: 7-IND SOCIAL INTERACTION: SOCIAL INTERACTION - STEP 1: Does the patient require a helper to interact with others in social and therapeutic situations? No. SOCIAL INTERACTION - STEP 2: Does the patient need extra time in social situations, OR does s/he interact with staff, other patien ts, and family members ONLY in structured environments, OR does s/he require medication for social in teraction? Yes, patient needs extra time SOCIAL INTERACTION - SCORE: 6-TREVER PROBLEM SOLVING: PROBLEM SOLVING - STEP 1: Does the patient need help from a person or device, or need extra time to solve complex problems such as managing a checking account or confronting interpersonal problems? Yes. PROBLEM SOLVING - STEP 2: Does the patient solve basic routine problems half or more of the time? Yes. PROBLEM SOLVING - STEP 3: How often does the patient need help to solve basic routine problems? 10%-24% of the time PROBLEM SOLVING - SCORE: 4-MIN MEMORY: MEMORY - STEP 1: Does the patient need help from a person or device, or need extra time to remember frequently encount ered people, daily routines, and executing requests? No. MEMORY - STEP 2: Does the patient have slight difficulty recognizing frequently encountered people, daily routines, or executing requests without the need for repetition or using self-initiated or environmental cues to remember? Yes. MEMORY - SCORE: 6-TREVER SIGNATURE PANEL: The following modified sections: Eating - Score, Grooming - Score, Dressing - Upper Body - Score, Laith ssing - Lower Body - Score, Toileting - Score, Bladder Management - Score, Bowel Management - Score, Transfers: Bed, Chair, Wheelchair - Score, Transfers: Toilet - Score, Transfers: Shower - Score, Mac sfers: Tub - Score, Locomotion: Walk - Score, Locomotion: Wheelchair - Score, Comprehension - Score, Expression - Score, Social Interaction - Score, Problem Solving - Score, Memory - Score were [electro nically] signed by Sarah Degroot CNA on SunJan 26 2019 00:39:33 GMT-0500 (Central Daylight Time)
[2019-01-26] MEDS: DULERA 100/5 (MOMETASONE/FORMOTEROL) INHALER IH SCH ×2 (08:00→20:02)
[2019-01-26] MEDS: POTASSIUM CL SA 10 MEQ TAB PO SCH (08:05)
[2019-01-26] MEDS: APIXABAN 2.5 MG TABLET PO SCH ×2 (08:05→20:01)
[2019-01-26] MEDS: ASPIRIN 81 MG CHEWABLE TABLET PO SCH (08:05)
[2019-01-26] MEDS: CEFDINIR 300 MG CAP PO SCH (08:06)
[2019-01-26] MEDS: predniSONE 20 MG TAB PO SCH (08:06)
[2019-01-26] MEDS: LIDOCAINE 5% PATCH TOP SCH (08:31)
[2019-01-26] MEDS: ATORVASTATIN 40 MG TAB PO SCH (20:01)
--- NOTE | 2019-01-27 01:19 | FAST ---
SHIFT START DATE/TIME: 01/26/2019 19:00 (CDT) SHIFT END DATE/TIME: 01/27/2019 07:00 (CDT) NAME YSABEL ARDON DATE OF : 1945 DATE OF ADMISSION: 01/21/2019 17:23 (CDT) PHONE: AGE: 73 SSN# [id number] GENDER: Male ENCOUNTER PHYSICIAN: Dr. Maxwell Chisholm M.D. ADMISSION DIAGNOSIS: - Pulmonary Disorders 10 - Chronic Obstructive Pulmonary Disease (10.1) COPD Exacerbation. EATING: Activity did not occur on this shift EATING - SCORE: 0-UNK GROOMING: Activity did not occur on this shift GROOMING - SCORE: 0-UNK BATHING: Activity did not occur on this shift BATHING - SCORE: 0-UNK DRESSING - UPPER BODY: Patient is not dressing in public clothing ARTICLES SCORE Total number of steps: 0 DRESSING - UPPER BODY - SCORE: 0-UNK DRESSING - LOWER BODY: Patient is not dressing in public clothing ARTICLES SCORE Total number of steps: 0 DRESSING - LOWER BODY - SCORE: 0-UNK TOILETING: TOILETING - STEP 1: Does the patient require the assistance of a person or device, or need extra time with toileting? Yes . TOILETING - STEP 2: Does the patient require the assistance of a helper? Yes. TOILETING - STEP 3: How much assistance does the patient require from the helper? Hands-on assistance from the helper TOILETING - STEP 4: Of the 3 tasks: 1) Adjusting clothing prior to use, 2) Cleansing of perineal area, 3) Adjusting clot wisam after use; How many tasks does the patient perform WITHOUT assistance of the helper? No tasks; h elper performs all three tasks TOILETING - SCORE: 1-DEP BLADDER MANAGEMENT: [place] removes incontinent device (Depends, pull ups, etc.); cleans the patient after accident / inco ntinent episode; and, applies new incontinent device. BLADDER MANAGEMENT - SCORE: 1-DEP BLADDER MANAGEMENT - FREQUENCY OF ACCIDENTS: BLADDER MANAGEMENT(FA) - STEP 1: How many accidents has the patient had during the current shift? 1 BOWEL MANAGEMENT: BOWEL MANAGEMENT - STEP 1: Does the patient control bowels completely and intentionally without equipment devices or medications AND is always continent? No. BOWEL MANAGEMENT - STEP 2: Does the patient require the assistance of a helper? No, patient requires medication for control such as stool softeners, suppositories, laxatives, enemas, or OTC medications BOWEL MANAGEMENT - SCORE: 6-TREVER TRANSFERS: BED, CHAIR, WHEELCHAIR: Activity did not occur on this shift TRANSFERS: BED, CHAIR, WHEELCHAIR - SCORE: 0-UNK TRANSFERS: TOILET: Activity did not occur on this shift TRANSFERS: TOILET - SCORE: 0-UNK TRANSFERS: SHOWER: Activity did not occur on this shift TRANSFERS: SHOWER - SCORE: 0-UNK TRANSFERS: TUB: Activity did not occur on this shift TRANSFERS: TUB - SCORE: 0-UNK LOCOMOTION: WALK: Activity did not occur on this shift LOCOMOTION: WALK - SCORE: 0-UNK LOCOMOTION: WHEELCHAIR: Activity did not occur on this shift LOCOMOTION: WHEELCHAIR - SCORE: 0-UNK COMPREHENSION: COMPREHENSION: TYPE: Both COMPREHENSION - STEP 1: Does the patient require help from a person or device, or need extra time to understand complex and a bstract ideas (such as current events, finances, discharge planning, medical issues, relationships, e tc)? Yes. COMPREHENSION - STEP 2: Does the patient require help to understand questions or statements about basic needs or ideas (such as hunger, thirst, sleep, safety, daily schedule, room location, or discomfort) half or more of the t talya? No. COMPREHENSION - STEP 3: How often does the patient need help to understand directions and conversation about basic needs? 10% - 24% of the time COMPREHENSION - SCORE: 4-MIN EXPRESSION EXPRESSION: TYPE: Both EXPRESSION - STEP 1: Does the patient require help from a person or device, or need extra time expressing complex and abst ract ideas (such as current events, finances, discharge planning, medical issues, relationships, etc) ? No. EXPRESSION - STEP 2: Does the patient need extra time, require an assistive device (such as augmentive communication syste m or a communication board), OR does s/he have mild difficulty expressing complex and abstract ideas (including mild dysarthria or mild word-find problems)? No. EXPRESSION - SCORE: 7-IND SOCIAL INTERACTION: SOCIAL INTERACTION - STEP 1: Does the patient require a helper to interact with others in social and therapeutic situations? No. SOCIAL INTERACTION - STEP 2: Does the patient need extra time in social situations, OR does s/he interact with staff, other patien ts, and family members ONLY in structured environments, OR does s/he require medication for social in teraction? Yes, patient needs extra time SOCIAL INTERACTION - SCORE: 6-TREVER PROBLEM SOLVING: PROBLEM SOLVING - STEP 1: Does the patient need help from a person or device, or need extra time to solve complex problems such as managing a checking account or confronting interpersonal problems? Yes. PROBLEM SOLVING - STEP 2: Does the patient solve basic routine problems half or more of the time? Yes. PROBLEM SOLVING - STEP 3: How often does the patient need help to solve basic routine problems? 25%-49% of the time PROBLEM SOLVING - SCORE: 3-MOD MEMORY: MEMORY - STEP 1: Does the patient need help from a person or device, or need extra time to remember frequently encount ered people, daily routines, and executing requests? No. MEMORY - STEP 2: Does the patient have slight difficulty recognizing frequently encountered people, daily routines, or executing requests without the need for repetition or using self-initiated or environmental cues to remember? Yes. MEMORY - SCORE: 6-TREVER SIGNATURE PANEL: The following modified sections: Eating - Score, Grooming - Score, Dressing - Upper Body - Score, Laith ssing - Lower Body - Score, Toileting - Score, Bladder Management - Score, Bowel Management - Score, Transfers: Bed, Chair, Wheelchair - Score, Transfers: Toilet - Score, Transfers: Shower - Score, Mac sfers: Tub - Score, Locomotion: Walk - Score, Locomotion: Wheelchair - Score, Comprehension - Score, Expression - Score, Social Interaction - Score, Problem Solving - Score, Memory - Score were [electro nically] signed by Sarah Degroot CNA on SunJan 27 2019 01:19:00 GMT-0500 (Central Daylight Time)
[2019-01-27 05:21] VITALS: BMI 18.3
[2019-01-27] MEDS: POTASSIUM CL SA 10 MEQ TAB PO SCH (07:43)
[2019-01-27] MEDS: LIDOCAINE 5% PATCH TOP SCH (07:43)
[2019-01-27] MEDS: ASPIRIN 81 MG CHEWABLE TABLET PO SCH (07:43)
[2019-01-27] MEDS: APIXABAN 2.5 MG TABLET PO SCH ×2 (07:43→19:40)
[2019-01-27] MEDS: predniSONE 20 MG TAB PO SCH (07:43)
[2019-01-27] MEDS: DULERA 100/5 (MOMETASONE/FORMOTEROL) INHALER IH SCH ×2 (07:44→19:39)
--- NOTE | 2019-01-27 17:13 | R.PN ---
ENCOUNTER DATE AND TIME: 01/27/2019 17:12 (CDT) NAME CARROLL CASTANEDA DATE OF : 1945 DATE OF ADMISSION: 01/21/2019 17:23 (CDT) COPD ExacerbationCHIEF COMPLAINT: Debility SUBJECTIVE: Pt denied any depression. Pt denied any Shortness of Breath. He is making good overal progress with physical and occupational therapy. VITAL SIGNS Temperature: 97.6 F SBP/DBP:153/85 Pulse: 66 Resp: 16 MEDICATION ALLERGIES: No Known Drug Allergies (NKDA) ENVIRONMENTAL ALLERGIES: None Known - Substance Allergies None Known - Other Allergies None Known NURSING: - Shower allowing shower ACTIVITIES OOB only with supervision THERAPIES: - Dietary and Nutrition Adequate Nutrition. Nutritional Education. Nutritional Supplements. PHYSICAL EXAM - Gen Alert and awake Lying in bed No apparent distress Oriented to: person, time, and place - Skin No skin breakdown. Normacephalic - Eyes No abnormalities - ENMT No abnormalities - Neck No abnormalities - CVS RRR - Chest No abnormalities - Abd Soft - GI Non distended Deferred - No abnormalities - Ext No significant edema - MSK 4+/5 weakness in both lower extremities. - Neuro No focal deficits - Psych No abnormalities ASSESSMENT: Pt. is a 73 yo Right-handed black male.On 01/17/2019 he was admitted to [facility] with diagnosis COPD Exacerbation.His impairment category is Pulmonary Disorders 10 - Chronic Ob structive Pulmonary Disease (10.1).Pre-morbidly, Pt. was independent/mod-I in Self-Care, Sphincter Co ntrol, Transfers Control, Locomotion, Communication, and Social Cognition; and he had good Sphincter Control.Currently, he has deficits of Self-Care, Transfers Control, Locomotion, Endurance, Balance, a nd Safety Awareness.Pt. is now referred to [facility] for acute in-patient marianne abilitation in order to maximize patient's functional independence in activities of daily living, str ength, ROM, and mobility.- Rehab Goal Patient has realistic goal of being discharged at assistance level 6-Marybeth to reside at Home with Fam rashawn/Relatives. MDM/PLAN: - Physical Therapy Gait dysfunction - to improve, our physical therapists will perform initial evaluation of pt's statu s upon admission and devise an individualized program for Gait Training, and Wheel Chair mobility Inability to transfer - to improve, our physical therapists will perform initial evaluation of pt's status upon admission and devise an individualized program for Bed mobility Need for home safety evaluation - to improve, our physical therapists will perform initial evaluatio n of pt's status upon admission and devise an individualized program for Home Evaluation Need in caregiver upon discharge - to improve, our physical therapists will perform initial evaluati on of pt's status upon admission and devise an individualized program for Caregiver Training Edema - to improve, our physical therapists will perform initial evaluation of pt's status upon admi ssion and devise an individualized program for Elevation Training, and Lymphedema Therapy New precaution - to improve, our physical therapists will perform initial evaluation of pt's status upon admission and devise an individualized program for Patient precaution education Poor balance - to improve, our physical therapists will perform initial evaluation of pt's status up on admission and devise an individualized program for Balance Training Poor endurance - to improve, our physical therapists will perform initial evaluation of pt's status upon admission and devise an individualized program for Endurance Training Weakness - to improve, our physical therapists will perform initial evaluation of pt's status upon a dmission and devise an individualized program for Aquatic Therapy, Neuromuscular Reeducation, and Str engthening Achieving independence - to improve, our physical therapists will perform initial evaluation of pt's status upon admission and devise an individualized program for Community Reintegration Activities - Occupational Therapy ADL deficits - to improve, our occupation therapists will perform initial evaluation of pt's status upon admission and devise an individualized program for Bathing, Bed mobility, Community Reintegratio n, Cooking, Dressing, Eating, Fine Motor Skills, Grooming, Homemaking, Kitchen Mobility, Laundry, Pat ient Education, Safety Awareness, Splinting - Positioning, Transfers(Toilet, Tub, Shower), and Wheel Chair Management Need for rn coronary care unit - to improve, our occupation therapists will perform initial evaluation of pt's status upon admission and devise an individualized program for Caregiver Training Weakness - to improve, our occupation therapists will perform initial evaluation of pt's status upon admission and devise an individualized program for Aquatic Therapy, Balance, Endurance, UE ROM, and UE strengthening - Other See attached MAR (Medication Administration Record) Carroll Castaneda.pdf See attached MAR (Medication Administration Record) - Diet Type Continue Regular - Diet - Liquid Texture Continue Regular - Tube Feed Continue N/A - Diet - Solid Texture Continue Regular - Shower allowing shower FUNCTIONAL STATUS: UPDATED AT WEEKLY TEAM CONFERENCE - Bladder Same accident frequency: 7-Ind - No accidents in the past 7 days - Bowel Same accident frequency: 7-Ind - No accidents in the past 7 days - Walking Same score based on distance walked: 0(N/A) - Wheelchair Same score based on distance traveled: 0(N/A) FUNCTIONAL STATUS: - Self-Care A. Eating sup B. Grooming sup C. Bathing modA D. Dressing - Upper modA E. Dressing - Lower modA F. Toileting modA - Sphincter Control G: Bladder control Ind H: Bowel control Ind - Transfers Control I. Bed/Chair/Wheelchair maxA J. Toilet maxA K. Tub/Shower ADNO - Locomotion L. Walk/Wheelchair (C) Dep L. Walk/Wheelchair (W) Dep M. Stairs ADNO - Communication N. Comprehension (B) Ind O. Expression (B) Ind - Social Cognition P. Social Interaction Ind Q. Problem Solving Ind R. Memory Ind - Endurance Poor - Balance Poor - Safety Awareness Fair CURRENT FUNC. DEFICITS: Self-Care, Transfers Control, Locomotion, Endurance, Balance, and Safety Awareness SIGNATURE PANEL: (CDT)
[2019-01-27] MEDS: MELATONIN 3 MG TABLET PO PRN (19:40)
[2019-01-27] MEDS: ATORVASTATIN 40 MG TAB PO SCH (19:40)
[2019-01-28] MEDS: LIDOCAINE 5% PATCH TOP SCH (07:23)
[2019-01-28] MEDS: DULERA 100/5 (MOMETASONE/FORMOTEROL) INHALER IH SCH ×2 (07:25→19:00)
[2019-01-28] MEDS: HYDROCODONE/APAP 10/325 TAB PO PRN (08:16)
[2019-01-28] MEDS: ASPIRIN 81 MG CHEWABLE TABLET PO SCH (08:17)
[2019-01-28] MEDS: APIXABAN 2.5 MG TABLET PO SCH ×2 (08:17→19:00)
[2019-01-28] MEDS: predniSONE 20 MG TAB PO SCH (08:17)
[2019-01-28] MEDS: POTASSIUM CL SA 10 MEQ TAB PO SCH (08:17)
[2019-01-28] MEDS: MELATONIN 3 MG TABLET PO PRN (19:01)
[2019-01-28] MEDS: ATORVASTATIN 40 MG TAB PO SCH (19:01)
--- NOTE | 2019-01-28 22:17 | R.PN ---
ENCOUNTER DATE AND TIME: 01/28/2019 22:16 (CDT) NAME CARROLL CASTANEDA DATE OF : 1945 DATE OF ADMISSION: 01/21/2019 17:23 (CDT) COPD ExacerbationCHIEF COMPLAINT: Debility SUBJECTIVE: Pt denied any depression. Pt denied any Shortness of Breath. He is making good overal progress with physical and occupational therapy. VITAL SIGNS Temperature: 97.3 F SBP/DBP:158/85 Pulse: 68 Resp: 16 MEDICATION ALLERGIES: No Known Drug Allergies (NKDA) ENVIRONMENTAL ALLERGIES: None Known - Substance Allergies None Known - Other Allergies None Known NURSING: - Shower allowing shower ACTIVITIES OOB only with supervision THERAPIES: - Dietary and Nutrition Adequate Nutrition. Nutritional Education. Nutritional Supplements. PHYSICAL EXAM - Gen Alert and awake Lying in bed No apparent distress Oriented to: person, time, and place - Skin No skin breakdown. Normacephalic - Eyes No abnormalities - ENMT No abnormalities - Neck No abnormalities - CVS RRR - Chest No abnormalities - Abd Soft - GI Non distended Deferred - No abnormalities - Ext No significant edema - MSK 4+/5 weakness in both lower extremities. - Neuro No focal deficits - Psych No abnormalities ASSESSMENT: Pt. is a 73 yo Right-handed black male.On 01/17/2019 he was admitted to [facility] with diagnosis COPD Exacerbation.His impairment category is Pulmonary Disorders 10 - Chronic Ob structive Pulmonary Disease (10.1).Pre-morbidly, Pt. was independent/mod-I in Self-Care, Sphincter Co ntrol, Transfers Control, Locomotion, Communication, and Social Cognition; and he had good Sphincter Control.Currently, he has deficits of Self-Care, Transfers Control, Locomotion, Endurance, Balance, a nd Safety Awareness.Pt. is now referred to [facility] for acute in-patient marianne abilitation in order to maximize patient's functional independence in activities of daily living, str ength, ROM, and mobility.- Rehab Goal Patient has realistic goal of being discharged at assistance level 6-Marybeth to reside at Home with Fam rashawn/Relatives. MDM/PLAN: - Physical Therapy Gait dysfunction - to improve, our physical therapists will perform initial evaluation of pt's statu s upon admission and devise an individualized program for Gait Training, and Wheel Chair mobility Inability to transfer - to improve, our physical therapists will perform initial evaluation of pt's status upon admission and devise an individualized program for Bed mobility Need for home safety evaluation - to improve, our physical therapists will perform initial evaluatio n of pt's status upon admission and devise an individualized program for Home Evaluation Need in caregiver upon discharge - to improve, our physical therapists will perform initial evaluati on of pt's status upon admission and devise an individualized program for Caregiver Training Edema - to improve, our physical therapists will perform initial evaluation of pt's status upon admi ssion and devise an individualized program for Elevation Training, and Lymphedema Therapy New precaution - to improve, our physical therapists will perform initial evaluation of pt's status upon admission and devise an individualized program for Patient precaution education Poor balance - to improve, our physical therapists will perform initial evaluation of pt's status up on admission and devise an individualized program for Balance Training Poor endurance - to improve, our physical therapists will perform initial evaluation of pt's status upon admission and devise an individualized program for Endurance Training Weakness - to improve, our physical therapists will perform initial evaluation of pt's status upon a dmission and devise an individualized program for Aquatic Therapy, Neuromuscular Reeducation, and Str engthening Achieving independence - to improve, our physical therapists will perform initial evaluation of pt's status upon admission and devise an individualized program for Community Reintegration Activities - Occupational Therapy ADL deficits - to improve, our occupation therapists will perform initial evaluation of pt's status upon admission and devise an individualized program for Bathing, Bed mobility, Community Reintegratio n, Cooking, Dressing, Eating, Fine Motor Skills, Grooming, Homemaking, Kitchen Mobility, Laundry, Pat ient Education, Safety Awareness, Splinting - Positioning, Transfers(Toilet, Tub, Shower), and Wheel Chair Management Need for rn acute care - to improve, our occupation therapists will perform initial evaluation of pt's status upon admission and devise an individualized program for Caregiver Training Weakness - to improve, our occupation therapists will perform initial evaluation of pt's status upon admission and devise an individualized program for Aquatic Therapy, Balance, Endurance, UE ROM, and UE strengthening - Other See attached MAR (Medication Administration Record) Carroll Castaneda.pdf See attached MAR (Medication Administration Record) - Diet Type Continue Regular - Diet - Liquid Texture Continue Regular - Tube Feed Continue N/A - Diet - Solid Texture Continue Regular - Shower allowing shower FUNCTIONAL STATUS: UPDATED AT WEEKLY TEAM CONFERENCE - Bladder Same accident frequency: 7-Ind - No accidents in the past 7 days - Bowel Same accident frequency: 7-Ind - No accidents in the past 7 days - Walking Same score based on distance walked: 0(N/A) - Wheelchair Same score based on distance traveled: 0(N/A) FUNCTIONAL STATUS: - Self-Care A. Eating sup B. Grooming sup C. Bathing modA D. Dressing - Upper modA E. Dressing - Lower modA F. Toileting modA - Sphincter Control G: Bladder control Ind H: Bowel control Ind - Transfers Control I. Bed/Chair/Wheelchair maxA J. Toilet maxA K. Tub/Shower ADNO - Locomotion L. Walk/Wheelchair (C) Dep L. Walk/Wheelchair (W) Dep M. Stairs ADNO - Communication N. Comprehension (B) Ind O. Expression (B) Ind - Social Cognition P. Social Interaction Ind Q. Problem Solving Ind R. Memory Ind - Endurance Poor - Balance Poor - Safety Awareness Fair CURRENT FUNC. DEFICITS: Self-Care, Transfers Control, Locomotion, Endurance, Balance, and Safety Awareness SIGNATURE PANEL: (CDT)
[2019-01-29] MEDS: DULERA 100/5 (MOMETASONE/FORMOTEROL) INHALER IH SCH ×2 (08:10→21:04)
[2019-01-29] MEDS: HYDROCODONE/APAP 10/325 TAB PO PRN (08:11)
[2019-01-29] MEDS: ASPIRIN 81 MG CHEWABLE TABLET PO SCH (08:12)
[2019-01-29] MEDS: predniSONE 20 MG TAB PO SCH (08:12)
[2019-01-29] MEDS: APIXABAN 2.5 MG TABLET PO SCH ×2 (08:12→21:04)
[2019-01-29] MEDS: POTASSIUM CL SA 10 MEQ TAB PO SCH (08:12)
[2019-01-29] MEDS: LIDOCAINE 5% PATCH TOP SCH (09:39)
[2019-01-29] MEDS: ATORVASTATIN 40 MG TAB PO SCH (21:04)
[2019-01-30 06:48] LABS: Absolute Lymphocytes (CBC) 1.8 K/uL (0.7-4.9); Basophils % 0.9 % (0-1.3); Hematocrit 38.8 % (39.6-49.0); Lymphocytes % 27.3 % (15.3-44.8); MPV 7.6 fL (7.6-11.3)
[2019-01-30 07:10] LABS: Albumin 3.1 g/dL (3.4-5.0); BUN Blood Urea Nitrogen 26 mg/dL (7-18); Bicarbonate 29 mmol/L (21-32); Glucose Level 72 mg/dL (74-106); Magnesium 2.1 mg/dL (1.8-2.4); Potassium 4.5 mmol/L (3.5-5.1); Prealbumin 22.6 mg/dL (20-40); Sodium Level 137 mmol/L (136-145)
[2019-01-30] MEDS: predniSONE 20 MG TAB PO SCH (08:20)
[2019-01-30] MEDS: POTASSIUM CL SA 10 MEQ TAB PO SCH (08:20)
[2019-01-30] MEDS: ASPIRIN 81 MG CHEWABLE TABLET PO SCH (08:20)
[2019-01-30] MEDS: APIXABAN 2.5 MG TABLET PO SCH ×2 (08:20→19:58)
[2019-01-30] MEDS: LIDOCAINE 5% PATCH TOP SCH (08:20)
[2019-01-30] MEDS: DULERA 100/5 (MOMETASONE/FORMOTEROL) INHALER IH SCH ×2 (08:20→19:58)
[2019-01-30] MEDS: ATORVASTATIN 40 MG TAB PO SCH (19:58)
[2019-01-31] MEDS: DULERA 100/5 (MOMETASONE/FORMOTEROL) INHALER IH SCH ×2 (08:00→19:28)
[2019-01-31] MEDS: LIDOCAINE 5% PATCH TOP SCH (08:19)
[2019-01-31] MEDS: APIXABAN 2.5 MG TABLET PO SCH ×2 (08:19→19:27)
[2019-01-31] MEDS: predniSONE 20 MG TAB PO SCH (08:19)
[2019-01-31] MEDS: POTASSIUM CL SA 10 MEQ TAB PO SCH (08:20)
[2019-01-31] MEDS: ASPIRIN 81 MG CHEWABLE TABLET PO SCH (08:20)
--- NOTE | 2019-01-31 09:29 | P.RH.PN ---
Estimated Length of Stay: 12 Expected Discharge Date: 02/01/19 Discharge Disposition Plan: Home Family Support: Yes [facility] Goal: Mobility, Transfers, Self Care Vital Signs: Last Vital Signs Temp 97.9 F 01/31/19 07:18 Pulse 56 01/31/19 07:18 Resp 16 01/31/19 07:18 BP 115/66 01/31/19 07:18 Pulse Ox 95 01/31/19 07:18 Laboratory: Laboratory Last Values WBC 6.7 K/uL (4.3-10.9) 01/30/19 06:33 RBC 4.20 M/uL (4.33-5.43) L 01/30/19 06:33 Hgb 13.2 g/dL (13.6-17.9) L 01/30/19 06:33 Hct 38.8 % (39.6-49.0) L 01/30/19 06:33 MCV 92.3 fL (80-100) 01/30/19 06:33 MCH 31.5 pg (27.0-35.0) 01/30/19 06:33 MCHC 34.1 g/dL (32.0-36.0) 01/30/19 06:33 RDW 15.0 % (12.1-15.2) 01/30/19 06:33 Plt Count 244 K/uL (152-406) 01/30/19 06:33 MPV 7.6 fL (7.6-11.3) D 01/30/19 06:33 Neutrophils % 64.5 % (41.7-73.7) 01/30/19 06:33 Lymphocytes % 27.3 % (15.3-44.8) 01/30/19 06:33 Monocytes % 6.8 % (3.3-12.3) 01/30/19 06:33 Eosinophils % 0.5 % (0-4.4) 01/30/19 06:33 Basophils % 0.9 % (0-1.3) 01/30/19 06:33 Absolute Neutrophils 4.3 K/uL (1.8-8.0) 01/30/19 06:33 Absolute Lymphocytes 1.8 K/uL (0.7-4.9) 01/30/19 06:33 Absolute Monocytes 0.5 K/uL (0.1-1.3) 01/30/19 06:33 Absolute Eosinophils 0.0 K/uL (0-0.5) 01/30/19 06:33 Absolute Basophils 0.1 K/uL (0-0.5) 01/30/19 06:33 Sodium 137 mmol/L (136-145) 01/30/19 06:33 Potassium 4.5 mmol/L (3.5-5.1) 01/30/19 06:33 Chloride 105 mmol/L (98-107) 01/30/19 06:33 Carbon Dioxide 29 mmol/L (21-32) 01/30/19 06:33 BUN 26 mg/dL (7-18) H 01/30/19 06:33 Creatinine 0.86 mg/dL (0.55-1.3) 01/30/19 06:33 Estimated GFR > 90 mL/min (=/>90) 01/30/19 06:33 Glucose 72 mg/dL (74-106) L 01/30/19 06:33 Calcium 8.6 mg/dL (8.5-10.1) 01/30/19 06:33 Magnesium 2.1 mg/dL (1.8-2.4) 01/30/19 06:33 Albumin 3.1 g/dL (3.4-5.0) L 01/30/19 06:33 Prealbumin 22.6 mg/dL (20-40) 01/30/19 06:33 Weight: 119 lb 1 oz Wound Present: No Closed Surgical Incision Present: No Negative Pressure Wound Therapy Present: No Physician Update: Labs reviewed and are stable. Doing well with physical and occupational therapy at supervision level. He will be discharged home with his family with [facility]. Medical Issues: Patient completed Cefdinir for UTI. Patient has bladder incontinence less than daily and occasionally bowel incontinence. Pain Issues: [place] 10/325mg Q6H PO PRN. Lidoderm patch 5% Daily to left knee Functional Improvement: Patient has met all short-term goals at this time and is progressing well toward long-term goals. Patient is currently CGA w/ gait tx. and very slow carrol, and Mod I w/ WC mobs. Functional Improvement Occupational Therapy: pt can benifit for further therapy to address pt's overall weakness for the upper and lower extremities, and increasing pt's safety for dressing tasks with educating with processing and coordination when threading socks and dressing/bathing tasks. cont to increase pt's static standing and alternating the right and left for adl tasks. Speech Therapy Update: Patient has been a pleasure to work with in therapy. Patient is consistently hard-working, agreeable, and compliant. He requires redirection as he often goes off on tangents, particularly about his memories from the past, but he is able to focus and remain on task once redirected. Patient is at MOD I for Auditory Comprehension, SUPV for Verbal Expression, MOD I for Social Interaction, SUPV to MOD I for Problem Solving, and MIN A to SUPV for Memory. Patient is d/c home on Sunday with HH services and continous caregiver support/supv. Summary: Patient's care plan and detention goals have been reviewed and revised as necessary. Please see the Rehabilitation Signature page for all necessary signatures.
[2019-01-31] MEDS: ATORVASTATIN 40 MG TAB PO SCH (22:20)
[2019-02-01] MEDS: ASPIRIN 81 MG CHEWABLE TABLET PO SCH (08:23)
[2019-02-01] MEDS: POTASSIUM CL SA 10 MEQ TAB PO SCH (08:24)
[2019-02-01] MEDS: APIXABAN 2.5 MG TABLET PO SCH (08:24)
[2019-02-01] MEDS: predniSONE 20 MG TAB PO SCH (08:25)
[2019-02-01] MEDS: DULERA 100/5 (MOMETASONE/FORMOTEROL) INHALER IH SCH (08:25)
[2019-02-01] MEDS: LIDOCAINE 5% PATCH TOP SCH (08:26)
[2019-02-01 10:50] VITALS: BP 116/69; TEMP 97.6
== END 2019-02-01 14:00 | disposition home health service (06) | DRG 192 ==
LOC: 5TH 17:23
PROVIDERS: ADMIT Psychiatry & Neurology Neurology with Special Qualifications in Child Neurology; ATTEND Psychiatry & Neurology Neurology with Special Qualifications in Child Neurology
DX: J44.1 Chronic obstructive pulmonary disease with (acute) exacerbation (principal); E78.2 Mixed hyperlipidemia; I25.10 Atherosclerotic heart disease of native coronary artery without angina pectoris; I10 Essential (primary) hypertension; N40.0 Benign prostatic hyperplasia without lower urinary tract symptoms; E03.9 Hypothyroidism, unspecified
CPT/HCPCS: 36415; 80048; 82040; 82962; 83735; 84134; 85025; 92507; 92523; 97110; 97116; 97127; 97161; 97530; 97542; J7512; J7606